=== PATIENT | male | born 1950 | race Caucasian/White ===

== ENCOUNTER 2024-03-04 21:56 | Inpatient (IN) | payer MEDICARE, SELFPAY ==
[2024-03-04 19:53] VITALS: BP 150/102
[2024-03-04 20:13] VITALS: BMI 28.4
--- NOTE | 2024-03-04 20:23 | ED.GENMED ---
History of Present Illness
General
Chief Complaint: Fever
Source: patient, records, spouse and family
Exam Limitations: none
Time Seen by Provider: 03/04/24 20:02
Nursing documentation reviewed up to this point in time: agreed with
History of Present Illness
History of Present Illness:
73-year-old male presents with fever malaise, had a Linq device replaced a week ago [facility] by Dr. Ennis has some drainage, placed on Bactrim a few days ago slept a few hours today which is not typical for him had fever 102, was
on a cruise a few months ago, some people are sick he had not been sick afterwards no, breathing feels okay has no nausea or vomiting no dysuria or frequency
Past History
Past History
ED Past Medical History: Arrthythmia, HTN and NIDDM
ED Past Surgical History: Cardiac
Social History
Tobacco: Non-smoker
Alcohol: Occasional
Drug: None
Personal:
Living: with family
Employment: Retired
Review of Systems
Review of Systems
Constitutional: Reports fever and fatigue
EENT: Reports no symptoms
Respiratory: Reports no symptoms
Cardiac: Reports no symptoms
ABD/GI: Reports no symptoms
Neurological: Reports weakness
Endocrine: Reports no symptoms
Hematologic/Lymphatic: Reports no symptoms
Psychiatric: Reports no symptoms
Phy Exam
Physical Exam
Physical Exam:
Physical Exam
General: 73 male warm to touch not hot
Neck: No jaundice
Heart: Tachycardic
Lungs: no acute respiratory distress. No wheeze
Abdomen: Nontender
Neuro: alert and oriented. no focal neurological deficits
Skin: Scar the left upper chest with redness some purulence
Psychiatric: well kept. interactive and cooperative
Extremities: no edema.
Course
Orders/Labs/Results
Orders:
Orders
03/04/24 20:18
COVID-19 Antigen Urgent
Source: Nasal Swab
Complete Blood Count/With Diff Urgent
Comprehensive Metabolic Panel Urgent
Blood Culture Urgent
RYAN Source: Blood/Venous
Specimen Description:
03/04/24 20:21
Electrocardiogram (*1) Urgent
Reason for Study: Abnormal EKG
EKG- Treatment ONCE
Blood Culture Urgent
RYAN Source: Blood/Venous
Specimen Description:
0.9% Sodium Chloride 1000 ml [Nss] 1,000 ml IV BOLUS
Acetaminophen [Tylenol] 650 mg PO NOW STA
03/04/24 20:41
Piperacillin/Tazo 3.375 Gram [Zosyn] 3.375 gram in 50 ml IV NOW
Vancomycin 1 Gram/200 ml [Vancocin] 1 gram in 200 ml IV NOW
Abnormal Lab Results
03/04/24
20:18
RBC 4.42 L 10^6/uL
(4.70-6.10)
MCH 32.1 H pg
(27.0-31.0)
Absolute Lymphs (auto) 0.5 L 10^3/uL
(1.2-3.4)
Absolute Monos (auto) 0.7 H 10^3/uL
(0.1-0.6)
Neutrophils % 75.7 H %
(42.2-75.2)
Lymphocytes % 9.7 L %
(20.5-51.1)
Monocytes % 12.0 H %
(1.7-9.3)
03/04/24 20:18
Vital Signs
Initial and Last Documented VS:
Initial Vital Signs
Temp Pulse Resp BP Pulse Ox
99.1 F 120 24 150/102 98
03/04/24 19:53 03/04/24 19:53 03/04/24 19:53 03/04/24 19:53 03/04/24 19:53
Last Documented Vital Signs
Temp Pulse Resp BP Pulse Ox
99.1 F 114 16 135/87 94
03/04/24 19:53 03/04/24 20:30 03/04/24 20:30 03/04/24 20:30 03/04/24 20:30
MDM/Problems Addressed
Differential Diagnosis Includes:
Cellulitis bacteremia viral syndrome complication linq
MDM/Problems Addressed:
Fever
Chronic conditions affecting care: DM and Arrhythmia
Acute Exacerbation and/or Progression of Chronic Illness: Arrhythmia
*Pulse Oximetry
Patient hypoxic: no
*Die Engraver Interpretation
Rate: normal
Interpretation: normal
Heart Rate: 78
Rhythm: sinus
*Critical Care Note
Total Time (30-74mins, 75-104mins- exclusive of procedures): Not Applicable
Update Note
Update Note:
Update patient with fever concern for bacteremia recent procedure patient refers to stay at [facility] which is not unreasonable reviewed briefly with cardiology and hospitalist patient's [id number] who is also hospitalist
ED Attending Note
-
Portions of this chart may have been created with voice recognition software.� Occasional wrong word or��sound alike� substitutions may have occurred due to the inherent limitations of voice recognition software.
Discharge Plan
Departure
Patient Disposition: Admit
Date of Disposition: 03/04/24
Time of Disposition: 20:43
Admit to: Med/Surg
Presentation/result/management discussed w/ accepting MD/DO: Hospitalist
Patient with high blood pressure during this ER visit?: No
Condition: Fair
Covid-19: Not Applicable
Discharge Problem:
Bacteremia
Interventions
Interventions:
*Risk Screen - Suicide Last Done: 03/04/24 19:53
*General Assessment Last Done: 03/04/24 19:53
*Neglect/Abuse Screening Last Done: 03/04/24 19:53
ED- Fall Risk Assessment Last Done: 03/04/24 19:53
*ED COVID-19 Vaccine History Last Done: 03/04/24 19:53
ED- Neurological Assessment Last Done: 03/04/24 20:14
ED-Skin Assessment Last Done: 03/04/24 20:17
Discharge Date and Time
Print Language: FRENCH
[2024-03-04 20:28] LABS: % Basophils 0.4 % (0-2); % Immature Granulocytes 0.2 % (0-0.5); % Lymphocytes 9.7 % (20.5-51.1); % Neutrophils 75.7 % (42.2-75.2); Absolute Eosinophils 0.1 10^3/uL (0-0.7); Absolute Lymphocytes 0.5 10^3/uL (1.2-3.4); Absolute Monocytes 0.7 10^3/uL (0.1-0.6); Absolute Neutrophils 4.2 10^3/uL (1.4-6.5); Hematocrit 39.4 % (39.0-52.0); Hemoglobin 14.2 g/dL (13.0-18.0); Mean Corpuscular Hgb 32.1 pg (27.0-31.0); Mean Corpuscular Volume 89.1 fL (80.0-94.0); Mean Platelet Volume 9.8 fL (7.4-10.4); Nucleated Red Blood Cells % 0 % (-); Platelet Count 166 10^3/uL (130-400); Red Blood Cell Count 4.42 10^6/uL (4.70-6.10); Red Cell Dist. Width 13.2 % (11.5-14.5); White Blood Cell Count 5.5 10^3/uL (4.8-10.8)
[2024-03-04] MEDS: TYLENOL 650 MG PO (20:29)
[2024-03-04 20:30] VITALS: BP 135/87
[2024-03-04] MEDS: NSS 1000 IV ×2 (20:31→23:43)
[2024-03-04 20:44] LABS: ALT (SGPT) 28 U/L (0-50); AST (SGOT) 27 U/L (17-59); Albumin 4.4 g/dl (3.5-5.0); Alkaline Phosphatase 80 U/L (38-126); Blood Urea Nitrogen 20 mg/dl (9-20); Calcium 9.2 mg/dl (8.4-10.2); Carbon Dioxide 28 mmol/L (22-30); Chloride 99 mmol/L (98-107); Estimated Creatinine Clearance 76 ml/min; Glucose 122 mg/dl (70-99); Potassium 3.6 mmol/L (3.5-5.1); Sodium 137 mmol/L (135-145); Total Bilirubin 1.9 mg/dl (0.2-1.3); Total Protein 6.8 g/dl (6.3-8.2); eGFR > 60.00
[2024-03-04 20:49] LABS: COVID-19 Antigen Negative (Negative)
[2024-03-04 21:00] VITALS: BP 139/85
[2024-03-04] MEDS: ZOSYN 50 IV (21:00)
--- NOTE | 2024-03-04 21:17 | HPS.HSE ---
Family Physician
-
Family Physician:
Chief Complaint
-
Fever and weakness
History of Present Illness
73-year-old man comes in with fever and malaise. He had a Linq device replaced a week ago at [facility] by Dr. Ennis. The past device's battery had run out. Since then, he has had some drainage, and was placed on Bactrim a few
days ago. Today he slept a few hours during the day, which is not typical for him, and had fever 102. Of note he was on a cruise a few months ago, and some people from the cruise are sick, but he had not been sick afterwards. He reports no
breathing difficulties, and that he feels okay, has no nausea or vomiting, no dysuria or frequency. At the time of my interview he stated he was comfortable and had no complaints. He has no prior admits to our hospital system.
Medical History
Past Medical History
Past Medical History: Reports Other
Additional Past Medical History:
Arrthythmia, paroxyxmal afib
Essential HTN
NIDDM
hypercholesterolemia
Knee arthritis
Orthopedic foot problem
Enlarged prostate
Past Surgical History: Reports Other
Additional Past Surgical History:
see above, placement of Linq device.
Social History
Tobacco: Non-smoker
Alcohol: Occasional
Drug: None
Personal:
Living: With Family
Family History
Family History: Not pertinent
Allergies / Home Medications
Allergies reflects when Allergies were last updated in [facility].
Home Medications with original date entered in [facility]
Allergy/Medication List:
Allergies
Allergy/AdvReac Type Severity Reaction Status Date / Time
No Known Allergies Allergy Unverified 03/04/24 20:00
Home Medications
amlodipine 10 mg tablet 10 mg PO DAILY 03/04/24
apixaban 5 mg tablet (Eliquis) 5 mg PO BID 03/04/24
ascorbic acid (vitamin C) 500 mg tablet (Vitamin C) 500 mg PO DAILY 03/04/24
atorvastatin 20 mg tablet 20 mg PO HS 03/04/24
calcium carbonate 500 mg PO DAILY 03/04/24
dapagliflozin propanediol 10 mg tablet (Farxiga) 10 mg PO DAILY 03/04/24
enalapril maleate 20 mg tablet 20 mg PO DAILY 03/04/24
flecainide 100 mg tablet 100 mg PO Q12H 03/04/24
glucosamine sulfate 500 mg tablet (Glucosamine) 500 mg PO DAILY 03/04/24
hydrochlorothiazide 25 mg tablet 25 mg PO DAILY 03/04/24
metoprolol succinate 100 mg tablet,extended release 24 hr 100 mg PO DAILY 03/04/24
omega 4-msk-sxt-fish oil 1,000 mg (120 mg-180 mg) capsule (Fish Oil) 1 cap PO DAILY 03/04/24
potassium chloride 20 mEq tablet,extended release(part/cryst) (Klor-Con M) 20 meq PO .3X WEEKLY 03/04/24
sulfamethoxazole 800 mg-trimethoprim 160 mg tablet (Bactrim DS) 1 tab PO BID 03/04/24
tamsulosin 0.4 mg capsule 0.4 mg PO HS 03/04/24
therapeutic multivitamin 1 tab PO DAILY 03/04/24
turmeric 400 mg capsule 400 mg PO DAILY 03/04/24
Review of Systems
-
History Source: Patient
A 12 point ROS was completed and negative except as noted: Yes
Physical Exam
Vital Signs
Vital Signs
Temp Pulse Resp BP Pulse Ox
99.1 F 111 23 139/85 93
03/04/24 19:53 03/04/24 21:00 03/04/24 21:00 03/04/24 21:00 03/04/24 21:00
Physical Exam
General: Well Developed, Well Nourished, No Apparent Distress, Comfortable and Conversant
HEENT: NormoCephalic, Anicteric, Moist mucous membranes, Atraumatic, Nose Appears Normal and Ears Appear Normal
Respiratory: Clear
Cardiac: S1/S2, Irregular Rhythm and Tachycardia (rate 100-105)
GI: Soft, Non Tender and Non Distended
Musculoskeletal: No Clubbing, No Cyanosis and No Edema
Skin: Warm and Dry; No Rash or Jaundice
Neuro: Awake, Alert, Oriented and AO x 3
Psych: Calm
Laboratory Results
-
03/04/24 20:18
03/04/24 20:18
Laboratory Results
Total Bilirubin 1.9 mg/dl (0.2-1.3) H 03/04/24 20:18
AST 27 U/L (17-59) 03/04/24 20:18
ALT 28 U/L (0-50) 03/04/24 20:18
Alkaline Phosphatase 80 U/L (38-126) 03/04/24 20:18
Data Reviewed
-
Lab Data: Labs Reviewed by me
Impression/Plan
-
IMPRESSION:
73 man with probable infected linq device implantation site.
temp 99.1
SBP 150-120
Pulse 100-110
WBC 5.5
glucose 122
PLAN:
1. Probable infected linq device site, no signs of sepsis, BP stable.
ER started abx: zosyn and vanc - continue
Iv fluids given - continue (no h/o CHF)
Cardiology consulted by ED
Removal of device in am
NPO after midnight, but may have meds
2. NIDDM - glucose in good range
Supplemental insulin not needed at this time
3. Essential HTN - continue home meds
4. Eliquis for afib - Will discuss with cardiology to see if it should be held.
Code: Full
VCD for DVTp
--- NOTE | 2024-03-04 21:34 | HPS.HSE ---
Family Physician
-
Family Physician: NOT KNOW UNKNOWN - PT DOES
Chief Complaint
-
Fever and lethargy
Medical History
Allergies / Home Medications
Allergies reflects when Allergies were last updated in [facility].
Home Medications with original date entered in [facility]
Physical Exam
Vital Signs
Vital Signs
Temp Pulse Resp BP Pulse Ox
99.1 F 111 23 139/85 93
03/04/24 19:53 03/04/24 21:00 03/04/24 21:00 03/04/24 21:00 03/04/24 21:00
Laboratory Results
-
03/04/24 20:18
03/04/24 20:18
Laboratory Results
Total Bilirubin 1.9 mg/dl (0.2-1.3) H 03/04/24 20:18
AST 27 U/L (17-59) 03/04/24 20:18
ALT 28 U/L (0-50) 03/04/24 20:18
Alkaline Phosphatase 80 U/L (38-126) 03/04/24 20:18
Impression/Plan
-
IMPRESSION:
PLAN:
[2024-03-04] MEDS: VANCOCIN 200 IV (21:53)
[2024-03-04 22:00] VITALS: BP 119/78
[2024-03-04] MEDS: FLOMAX 0.4 MG PO (22:39)
[2024-03-04] MEDS: LIPITOR 20 MG PO (22:40)
[2024-03-04] MEDS: TAMBOCOR 100 MG PO (22:40)
[2024-03-04 23:00] VITALS: BP 124/75
[2024-03-04 23:21] VITALS: BP 128/83
[2024-03-04 23:23] VITALS: BMI 28.6
[2024-03-04 23:40] VITALS: BMI 28.6
[2024-03-04 23:58] LABS: Lactic Acid 0.8 mmol/L (0.7-2.0)
[2024-03-05] VITALS (11 sets, daily range): BP systolic 114–153; BP diastolic 63–74
--- NOTE | 2024-03-05 | PTCARENOTE ---
Received pt from ED into room 0. Pt able to ambulate to bed with stand by assistance. Able to answer all admission questions. AAOx3. VSS. See assessment. NSS @ 75ml/hr initiated into R AC. NPO at midnight for procedure tomorrow. Pt states he uses
CPAP at home, offered to use one of our machines/reach out to respiratory, pt refused. Medial chest dressing changed and assessed, see proper documentation. Pt oriented to room. Pt has no complaints at this time, resting comfortably in bed.
[2024-03-05] MEDS: ZOSYN 50 IV ×4 (03:56→22:50)
[2024-03-05] MEDS: VANCOCIN 200 IV ×2 (05:53→18:09)
--- NOTE | 2024-03-05 08:36 | W.PN.HOSP.TC ---
Today's Communication/Plan
-
see bold
Assessment / Plan
Assessment / Plan
Gen: NAD, AAOx3.
Eyes: EOMI, PERRLA, no scleral icterus.
Neck: supple.
CV: irreg/irreg, +S1/S2, no m/r/g.
Resp: CTAB, no rales, wheezes, or rhonchi.
Abd: +BS, soft, NT, ND
Skin: Left chest with skin breakdown and mild cellulitis. No fluctuance. Scant purulent discharge on gauze bandage.
Neuro: CN 2-12 intact, non-focal.
Psych: Normal mood and affect.
Infected Linq site:
-Case discussed with cardiology. For device removal today.
-Continue vancomycin/Zosyn, consult infectious disease
DM2:
-SSI/accuchecks
-check a1c
-cont Farxiga
Essential hypertension:
-Continue Norvasc/enalapril/hydrochlorothiazide/Toprol-XL
Atrial fibrillation:
-Presumed permanent
-Continue flecainide/Toprol-XL
-Eliquis on hold for today's procedure
FULL/SCDs
Anticipated Discharge: Within 24 hours
Subjective/Interval History
-
Date of Service: March 05, 2024
Objective Data
-
Labs:
Laboratory Results
03/04/24 03/05/24
20:18 08:29
WBC Pending
Hgb Pending
Hct Pending
Plt Count Pending
Sodium 137 Pending
Potassium 3.6 Pending
Chloride 99 Pending
Carbon Dioxide 28 Pending
BUN 20 Pending
Creatinine 0.8 Pending
Glucose 122 H Pending
Calcium 9.2 Pending
Total Bilirubin 1.9 H Pending
AST 27 Pending
ALT 28 Pending
Alkaline Phosphatase 80 Pending
Vital Signs:
Vital Signs
Temp Pulse Resp BP Pulse Ox
98.2 F 72 16 121/69 94
03/05/24 07:45 03/05/24 07:45 03/05/24 07:45 03/05/24 07:45 03/05/24 07:45
[2024-03-05 08:56] LABS: Hematocrit 36.3 % (39.0-52.0); Hemoglobin 12.8 g/dL (13.0-18.0); Mean Corp Hgb Conc. 35.3 g/dL (33.0-37.0); Mean Corpuscular Hgb 32.7 pg (27.0-31.0); Mean Corpuscular Volume 92.6 fL (80.0-94.0); Mean Platelet Volume 10.3 fL (7.4-10.4); Platelet Count 140 10^3/uL (130-400); Red Blood Cell Count 3.92 10^6/uL (4.70-6.10); Red Cell Dist. Width 13.5 % (11.5-14.5); White Blood Cell Count 3.8 10^3/uL (4.8-10.8)
[2024-03-05] MEDS: OSCAL CAL 500 500 MG PO (09:30)
[2024-03-05] MEDS: NORVASC 10 MG PO (09:30)
[2024-03-05] MEDS: VITAMIN C 500 MG PO (09:30)
[2024-03-05] MEDS: THERAGRAN 1 TABLET PO (09:30)
[2024-03-05] MEDS: TOPROL XL 100 MG PO (09:31)
[2024-03-05] MEDS: ORETIC 25 MG PO (09:31)
[2024-03-05] MEDS: VASOTEC 20 MG PO (09:31)
[2024-03-05] MEDS: FARXIGA 10 MG PO (09:32)
[2024-03-05 09:42] LABS: ALT (SGPT) 23 U/L (0-50); AST (SGOT) 24 U/L (17-59); Albumin 3.4 g/dl (3.5-5.0); Alkaline Phosphatase 62 U/L (38-126); Blood Urea Nitrogen 17 mg/dl (9-20); Calcium 8.3 mg/dl (8.4-10.2); Carbon Dioxide 27 mmol/L (22-30); Chloride 103 mmol/L (98-107); Estimated Creatinine Clearance 76 ml/min; Glucose 113 mg/dl (70-99); Potassium 3.4 mmol/L (3.5-5.1); Sodium 139 mmol/L (135-145); Total Bilirubin 1.4 mg/dl (0.2-1.3); Total Protein 5.7 g/dl (6.3-8.2); eGFR > 60.00
--- NOTE | 2024-03-05 10:17 | CON.CAR ---
Consultation
Consultation Request
Date/Time Consultation Requested: 03/05/2024
Reason for Consultation: infected ILR pocket
Medical History
-
Chief Complaint: Fever
History of Present Illness:
73-year-old gentleman, with history of atrial fibrillation status post A-fib ablation at [facility] in 2021, with recurrence and DC cardioversion along with flecainide/Eliquis who has been having paroxysmal atrial fibrillation.
Patient had implantable loop recorder implanted in 2021 that lasted for 2 years. In February 2024, a week ago patient had whole lobe explanted and brand-new loop was implanted by Dr. Ennis at [facility].
Since then, patient has started swelling in the area of the loop associated with erythema. Patient was started on Bactrim. However he now presented with fever of 102 �F with malaise and weakness. The really has not been any other source of
infection. The implantable loop recorder pocket is inflamed and is now producing pus with dehiscence of the wound.
Patient did have a cruise a few months ago. He is also from [place] where he travels.
Past Medical History
Past Medical History: Arrhythmias (Paroxysmal atrial fibrillation status post A-fib ablation 2021 at [facility]), HTN, Hypercholesterolemia, NIDDM and Other (BPH, osteoarthritis,)
Past Surgical History: Cardiac (Status post A-fib ablation, status post ILR)
Social History
Tobacco: Non-Smoker
Alcohol: Occasional
Drug: None
Personal:
Living: With Family
Family History
Family History: Reviewed & Not Pertinent
Allergies / Home Medications
Allergy/AdvReac Type Severity Reaction Status Date / Time
No Known Allergies Allergy Unverified 03/04/24 20:00
�Medication �Instructions �Recorded �Confirmed �Type
amlodipine 10 mg tablet 10 mg PO DAILY Blood Pressure 03/04/24 03/04/24 History
apixaban 5 mg tablet (Eliquis) 5 mg PO BID Blood Clot 03/04/24 03/04/24 History
Prevention/Tx
ascorbic acid (vitamin C) 500 mg 500 mg PO DAILY Supplement 03/04/24 03/04/24 History
tablet (Vitamin C)
atorvastatin 20 mg tablet 20 mg PO HS High Cholesterol 03/04/24 03/04/24 History
calcium carbonate 500 mg PO DAILY Supplement 03/04/24 03/04/24 History
dapagliflozin propanediol 10 mg 10 mg PO DAILY Diabetes 03/04/24 03/04/24 History
tablet (Farxiga)
enalapril maleate 20 mg tablet 20 mg PO DAILY Blood Pressure 03/04/24 03/04/24 History
flecainide 100 mg tablet 100 mg PO Q12H Arrhythmia 03/04/24 03/04/24 History
glucosamine sulfate 500 mg tablet 500 mg PO DAILY Supplement 03/04/24 03/04/24 History
(Glucosamine)
hydrochlorothiazide 25 mg tablet 25 mg PO DAILY Blood Pressure 03/04/24 03/04/24 History
metoprolol succinate 100 mg 100 mg PO DAILY Heart Failure 03/04/24 03/04/24 History
tablet,extended release 24 hr
omega 6-frc-sne-fish oil 1,000 mg 1 cap PO DAILY High Cholesterol 03/04/24 03/04/24 History
(120 mg-180 mg) capsule (Fish Oil)
potassium chloride 20 mEq 20 meq PO Q48H Electrolyte 03/04/24 03/04/24 History
tablet,extended Repletion
release(part/cryst) (Klor-Con M)
sulfamethoxazole 800 1 tab PO BID Infection 03/04/24 03/04/24 History
mg-trimethoprim 160 mg tablet
(Bactrim DS)
tamsulosin 0.4 mg capsule 0.4 mg PO HS Urinary Issue 03/04/24 03/04/24 History
therapeutic multivitamin 1 tab PO DAILY Supplement 03/04/24 03/04/24 History
turmeric 400 mg capsule 400 mg PO DAILY Supplement 03/04/24 03/04/24 History
vitamins A,C,M-omzx-apdoqs 4,296 1 cap PO BID Supplement 03/04/24 03/04/24 History
mcg-226 mg-90 mg capsule
(PreserVision AREDS)
Review of Systems
-
History Source: Patient and Family
All other systems: Negative unless noted
Physical Exam
Vital Signs
Temp Pulse Resp BP Pulse Ox
98.2 F 72 16 121/69 94
03/05/24 07:45 03/05/24 09:31 03/05/24 07:45 03/05/24 09:31 03/05/24 07:45
Lab Results
03/05/24 08:29
03/05/24 08:29
Physical Exam
General: Well Developed, Well Nourished, No Apparent Distress, Comfortable and Respiratory Distress
HEENT: Normocephalic, Anicteric and Moist Mucous Membranes
Respiratory: Clear and Non Labored Respirations
Cardiac: S1/S2 and Regular Rhythm
GI: Soft, Non Tender, Non Distended and Normal Bowel Sounds
Musculoskeletal: No Clubbing, No Cyanosis and No Edema
Neuro: Awake, Alert, AO x 3 and No Motor Deficits
Impression / Plan
-
73-year-old gentleman with history of paroxysmal atrial fibrillation, status post A-fib ablation 2021 with subsequent implantable loop recorder status post loop reimplant in February 2024 presented with fevers rigors and chills along with infected
pocket.
Implantable loop recorder pocket infection
-Drainage from the pocket of implantable loop recorder
-Wound dehiscence
-With A-fib already noted and failure of flecainide/ablation, patient needs to be anticoagulated with Eliquis.
-With a source of infection, we will remove implantable loop recorder and washout the pocket.
-No other source of infection noted at this time.
Paroxysmal atrial fibrillation
-Status post A-fib ablation
-Currently on flecainide/metoprolol
-With recurrence of atrial fibrillation, we will consider this flecainide failure.
-With his age, hypertension, diabetes, patient is at high risk for coronary disease as well. He may not be a good candidate for flecainide.
-We discussed discontinuing flecainide and switching to another antiarrhythmic drugs like sotalol or dofetilide.
-Resume Eliquis. With disruption and anticoagulation, we will not recommend cardioversion at this time.
-Patient is paroxysmal and likely come out to sinus rhythm within a day or so once infection is well-controlled.
Obstructive sleep apnea
-On CPAP for the past 2 months now.
Data Reviewed
-
EKG: Tracing Personally Visualized and interpreted
Radiology: Report Reviewed by me
Medical Tests (Nuc Med, Echo etc): Image Personally Visualized and interpreted
Labs: Labs Reviewed by me
Old Records: Reviewed
--- NOTE | 2024-03-05 10:39 | PHA.VAN.IN ---
Addendum entered and electronically signed by Reanna Sarkar RPH 03/05/24 11:09:
Agree with resident's assessment and plan below.
Original Note:
Assessment
- Assessment
Renal Function: Appears similar to baseline
Concomitant Antimicrobials: Piperacillin/Tazobactam
AUC Dosing Plan
- Dosing Variables
Dosing Weight (kg): 82.69
Dosing CrCl (ml/min): 76
Vd coefficient (L/kg): 0.7
- Empiric Dosing
Initial / Loading Dose: Vanco 1000mg
Maintenance Regimen: Vanco 1000mg Q12H Started 03/05 06
Estimated AUC (mcg*h/mL): 529
Estimated Peak (mcg*h/mL): 31.1
Estimated Trough (mcg/ml): 14.8
Estimated Half Life (H): 10.27
- Monitoring
No levels ordered at this time: Consider in the next few days
Pharmacokinetics Vancomycin I
- -
Patient Age: 73
Patient Sex: Male
Vancomycin Day #: 1
Indication: Bacteremia
Requesting Provider: Ting
Pertinent Antimicrobial Allergies:
NKDA
Height / Weight:
Height 5 ft 7 in
Actual Weight 82.69 kg
Pertinent Past Medical History: placement of Linq device w/ drainage
- Vital Signs / Lab Results
Temp Pulse Resp BP Pulse Ox
98.2 F 72 16 121/69 94
03/05/24 07:45 03/05/24 09:31 03/05/24 07:45 03/05/24 09:31 03/05/24 07:45
Lab Results - Hematology
03/04/24 03/05/24
20:18 08:29
WBC 5.5 3.8 L
Lab Results - Chemistry
03/04/24 03/05/24
20:18 08:29
BUN 20 17
Creatinine 0.8 0.8
Estimated Creat Clear 76 76
Albumin 4.4 3.4 L
03/04/24 03/05/24 03/05/24
23:22 03:14 07:14
Lactic Acid 0.8 Cancelled Cancelled
[2024-03-05] MEDS: NOVOLOG FLEXPEN-LOW RESISTANCE SC ×2 (11:16→17:27)
[2024-03-05 11:17] LABS: Glucose - Point of Care 109 mg/dl (70-99)
[2024-03-05 11:29] LABS: Lactic Acid 1.1 mmol/L (0.7-2.0)
[2024-03-05] MEDS: TAMBOCOR 100 MG PO ×2 (11:44→22:50)
--- NOTE | 2024-03-05 13:19 | ITS.CL.IMPLP ---
[facility] - Implant Loop
Implant Loop
Procedure Report:
Procedure: Extraction of Loop Recorder.
Date of the procedure: 03/05/24
Procedure Physician: Magaly Cassidy MD [facility]
Indication: Infected pocket
Description of the procedure:
Patient was brought to the holding area after informed consent was obtained. The time out was performed immediately before the procedure.
The left parasternal chest area was prepped and draped in sterile fashion with chlorahexidine prep x 3 times. Lidocaine 1% was injected subcutaneously for local anesthesia. The loop recorder was palpated and the location was identified. There was
expressed pus from the pocket. An incision was made at the previous insertion location. The blunt dissection was done to identify the location of the ILR. The ILR was pulled out of the capsule.
A set of cultures was obtained.
The pocket was flushed with antibiotics soaked saline and the wound was washed thoroughly. With infection, decision was made to leave the wound open with secondary intention healing.
A loose dressing applied with gauzes and paper tape to allow for the drainage of infected material.
Explanted device:
[employer] Reveal Linq; Model# [id number];
Conclusion:
Successful removal of the loop recorder, pocket washout. �
--- NOTE | 2024-03-05 13:54 | CON.ID ---
Consultation
-
Date/Time Consultation Requested: 03/05/2024 08:18
Date/Time Consultation Performed: 03/05/2024 12:40
Requesting Provider: Dr. Snyder
Performing Provider: Dr. Temple
Reason for Consultation: Loop recorder pocket infection
Chief Complaint / Past History
History of Present Illness
David Mata is a 73-year-old man with a significant past medical history of paroxysmal atrial fibrillation being evaluated at the request of Dr. Snyder regarding loop recorder pocket infection. History is obtained from chart review, along with
patient interview and history obtained from the patient's who was present at the bedside.
The patient has a longstanding history of atrial fibrillation and has previously undergone cardiac ablation, but without success. He had a loop recorder implanted in 2021, but the battery reached end-of-life status and the loop recorder was
replaced last week at [facility]. According to the , approximately 5 days ago the site appeared 'wet'. The next day they noted small amount of yellowish drainage, but this was under the gauze that was over top the incisional area. Over the next
several days he noted some purulence from the area and 2 days ago the patient developed some fever which continued on to yesterday. Because of symptomatology, he came to the emergency room for further evaluation. Here, cultures were obtained
(currently pending), and the patient has been evaluated by cardiology. The patient is currently status post explantation of the Linq device.
At present, he denies significant discomfort or pain. He denies any current fevers or chills. He has been afebrile since admission.
Past History
Additional Past Medical History:
Paroxysmal A-fib
HTN
DM
Dyslipidemia
Additional Past Surgical History:
Cardiac ablation (2021)
Loop recorder implantation
Cholecystectomy
Allergy History:
No Known Allergies Allergy (Unverified 03/04/24 20:00)
Medications Reviewed: Yes
Current Antibiotics:
Vancomycin
Zosyn
Social History
Tobacco: Non-Smoker
Alcohol: Occasional
Drug: None
Personal:
Living: With Family
Employment: Retired
Family History
Family History: Not Pertinent
Review of Systems
Vital Signs
Temp Pulse Resp BP Pulse Ox
98.3 F 76 16 153/74 94
03/05/24 11:49 03/05/24 11:49 03/05/24 11:49 03/05/24 11:49 03/05/24 11:49
Physical Exam
Physical Exam
Constitutional: No Acute Distress, Comfortable and Non-toxic
Head: Normocephalic
Eyes: No Conjunctival Hemorrhage and Sclera Anicteric
Oral: No Thrush and No Ulcers
Cardiovascular: Irregular Rate and S1/S2; Negative S3/S4 or Murmur
Pulmonary: Clear and Non Labored
Gastrointestinal: Soft, Non Tender, Non Distended and Normal Bowel Sounds
Extremities: Negative Edema, Cyanosis or Erythema
Neurological: Awake, Alert and Oriented
Psychological: Calm
.
Lab / Diagnostic Study Results
03/05/24 08:29
03/05/24 08:29
Abs Immat Gran (auto) 0.0 10^3/uL (0-0.05) 03/04/24 20:18
Absolute Neuts (auto) 4.2 10^3/uL (1.4-6.5) 03/04/24 20:18
Absolute Lymphs (auto) 0.5 10^3/uL (1.2-3.4) L 03/04/24 20:18
Absolute Monos (auto) 0.7 10^3/uL (0.1-0.6) H 03/04/24 20:18
Absolute Basos (auto) 0.0 10^3/uL (0-0.2) 03/04/24 20:18
Immature Gran % 0.2 % (0-0.5) 03/04/24 20:18
Neutrophils % 75.7 % (42.2-75.2) H 03/04/24 20:18
Lymphocytes % 9.7 % (20.5-51.1) L 03/04/24 20:18
Monocytes % 12.0 % (1.7-9.3) H 03/04/24 20:18
Eosinophils % 2.0 % (0-6) 03/04/24 20:18
Basophils % 0.4 % (0-2) 03/04/24 20:18
Lactic Acid 1.1 mmol/L (0.7-2.0) 03/05/24 11:07
Microbiology Results
Micro:
03/04/24 20:59 Wound Culture - Pending
Surgical Wound Gram Stain - Preliminary
03/04/24 20:18 Blood Culture - Pending
Blood/Venous
Assessment / Plan
Cardiac device pocket infection
- s/p explantation; cultures pending
Hx fever; none since admission
Paroxysmal A-fib
HTN
DM
Dyslipidemia
Recommendations:
Continue empiric vancomycin and Zosyn for the present.
Await further culture data to guide antimicrobial selection and potential de-escalation.
Monitor white count and temperature curve.
Local care to the surgical wound.
Further recommendations as additional data is returned.
--- NOTE | 2024-03-05 17:00 | CM ---
Alert awake oriented patient who lives with his Tashia who lives in a 2 story home with 4 step to enter and 14 steps to bed and bathroom. He is independent in driving and in all activities of daily living.He was offered VN he declined need.He
uses CPAP and cane .
No VN hx / No SNF history
Pharmacy [facility]
PCP DR Corky Bose
PLAN Home Declined VN
[2024-03-05 17:26] LABS: Glucose - Point of Care 129 mg/dl (70-99)
[2024-03-05 21:20] LABS: Glucose - Point of Care 196 mg/dl (70-99)
[2024-03-05] MEDS: LIPITOR 20 MG PO (22:50)
[2024-03-05] MEDS: FLOMAX 0.4 MG PO (22:50)
[2024-03-06 03:18] VITALS: BP 137/73
[2024-03-06] MEDS: ZOSYN 50 IV ×2 (04:00→09:24)
[2024-03-06] MEDS: VANCOCIN 200 IV (06:00)
[2024-03-06 07:35] LABS: Glucose - Point of Care 137 mg/dl (70-99)
--- NOTE | 2024-03-06 07:40 | W.PN.HOSP.TC ---
Addendum entered and electronically signed by Ortega Snyder MD 03/06/24 15:27:
Pt's son updated. Medically cleared for d/c. Wound care to see pt prior to discharge.
Total time spent on d/c = 36 min. This included today's physical exam, progress note, review of laboratory and diagnostic data, preparation of discharge documents and prescriptions, and discussions about the pt's hospital course and discharge plan
with the patient and other senior medical writer involved in the patient's care.
Original Note:
Today's Communication/Plan
-
see bold
Assessment / Plan
Assessment / Plan
Gen: NAD, AAOx3.
Eyes: EOMI, PERRLA, no scleral icterus.
Neck: supple.
CV: RRR, +S1/S2, no m/r/g.
Resp: very faint rales R base
Abd: +BS, soft, NT, ND
Skin: L chest with C/D/I bandage
Neuro: CN 2-12 intact, non-focal.
Psych: Normal mood and affect.
03/04/24 20:18 Blood/Venous Blood Culture - Preliminary
No Growth in 24 hours- Final report to follow
03/04/24 20:59 Surgical Wound Gram Stain - Preliminary
Echo: Limited by bandages. Normal BiV sz/fxn without RWMA, EF 50-55%.
Sepsis, POA, due to infected Linq site:
-s/p explantation 03/05/24
-cultures without growth to date
-was Vanco/Zosyn, now de-escalated to Ancef as per ID
Paroxysmal atrial fibrillation:
-h/o ablation in 2021
-Continue Toprol-XL
-currently on flecainide which is being stopped. Cardiology considering changing to an alternative antiarrhythmic such as sotalol or Tikosyn.
-restart Eliquis
Chronic HFpEF:
-since we are stopping HCTZ will give 1 dose IV Lasix
-cont BB
-as per cardiology, plan to start aldactone in the near future
Hypokalemia:
-K 3.4 yesterday, 3.6 today
-40meq KCl considering pt is receiving a dose of IV Lasix
DM2:
-SSI/accuchecks
-check a1c
-cont Farxiga
Essential hypertension:
-Continue Norvasc/enalapril/Toprol-XL
-stop HCTZ
Case discussed over the phone with pt's primary cardiology, Dr. Garcia, earlier today.
Pt's updated at bedside.
FULL/Eliquis
Anticipated Discharge: Within 24 hours
Subjective/Interval History
-
Date of Service: March 06, 2024
Denies shortness of breath. No new complaints.
Objective Data
-
Labs:
Laboratory Results
03/06/24
06:51
Sodium Pending
Potassium Pending
Chloride Pending
Carbon Dioxide Pending
BUN Pending
Creatinine Pending
Glucose Pending
Calcium Pending
Vital Signs:
Vital Signs
Temp Pulse Resp BP Pulse Ox
97.5 F 59 16 137/73 95
03/06/24 03:18 03/06/24 03:18 03/06/24 03:18 03/06/24 03:18 03/06/24 03:18
I&O
03/05/24 03/06/24 03/07/24
06:59 06:59 06:59
Intake Total 1140 / 1140
Balance 1140 / 1140
[2024-03-06] MEDS: NOVOLOG FLEXPEN-LOW RESISTANCE SC (07:41)
--- NOTE | 2024-03-06 07:51 | W.PN.CD ---
Today's Communication / Plan
-
- Stop HCTZ / Flecainide
- Lasix 20 mg IV x1
- Kcl 40 mg PO x1
- Consider switching Metoporlol to Sotalol.
Impression / Plan
-
73-year-old gentleman with history of paroxysmal atrial fibrillation, status post A-fib ablation 2021 with subsequent implantable loop recorder status post loop reimplant in February 2024 presented with fevers rigors and chills along with infected
pocket.
Implantable loop recorder pocket infection
-Drainage from the pocket of implantable loop recorder
-Wound dehiscence with pus
-s/p removal of implantable loop recorder and washout the pocket.
-No other source of infection noted at this time.
- No significant discharge from the wound - healing well. No pain.
Paroxysmal atrial fibrillation
-Status post A-fib ablation
-Currently on flecainide/metoprolol
-With recurrence of atrial fibrillation, we will consider this flecainide failure.
-With his age, hypertension, diabetes, patient is at high risk for coronary disease as well. He may not be a good candidate for flecainide.
-We discussed discontinuing flecainide and switching to another antiarrhythmic drugs like sotalol or dofetilide.
-Resumed Eliquis. back in sinus rhythm.
-QTc is 390s
-Discussed option of starting Sotalol. Will stop HCTZ and Flecainide.
-Can switch Metoprolol to Sotalol 80 mg BID. Patient will discuss with his family. He has to stay for 5 doses loading in the hospital.
CHF
-HFpEF
-ECHO 03/05/24 - Normal biventricular size and systolic function without regional wall motion abnormality. Left ventricular ejection fraction is 50-55%
-On Oxygen - still requiring 2L
-Will give 20mg IV lasix. Ashlyn now that we are stopping HCTZ
-Has hypokalemia. Replace today. 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
Obstructive sleep apnea
-On CPAP for the past 2 months now.
Physical Exam
Vital Signs/Labs
Vital Signs
Temp Pulse Resp BP Pulse Ox
97.5 F 59 16 137/73 95
03/06/24 03:18 03/06/24 03:18 03/06/24 03:18 03/06/24 03:18 03/06/24 03:18
03/05/24 03/06/24 03/07/24
06:59 06:59 06:59
Actual Weight 82.69 kg
03/05/24 08:29
Physical Exam
Constitutional: No acute distress and Comfortable
EENT: Anicteric and Moist mucous membranes
Cardiovascular: Rhythm & rate is regular, Pedal edema is absent, JVD pressure is normal and Systolic murmur absent
Respiratory: Respiratory effort normal, Lungs clear to auscul., Wheeze Absent and Crackles Absent
GI: Soft, Distention absent, Non tender and Normal bowel sounds
Neuro/Psych: Alert, Oriented and AO x 3
Data Reviewed
-
Date of Service: March 06, 2024
Medical Decision Making: Reviewed Test Results, Test Interpretation and Review of Case with other Provider
EKG: Tracing Personally Visualized and interpreted
Echo: Report Reviewed by me
Labs: Labs Reviewed by me
Old Records: Reviewed
[2024-03-06 08:00] VITALS: BP 122/62
[2024-03-06 08:19] LABS: Blood Urea Nitrogen 19 mg/dl (9-20); Calcium 8.6 mg/dl (8.4-10.2); Carbon Dioxide 26 mmol/L (22-30); Chloride 99 mmol/L (98-107); Estimated Creatinine Clearance 87 ml/min; Glucose 148 mg/dl (70-99); Potassium 3.6 mmol/L (3.5-5.1); Sodium 137 mmol/L (135-145); eGFR > 60.00
[2024-03-06] MEDS: KCL 40 MEQ PO (09:22)
[2024-03-06] MEDS: OSCAL CAL 500 500 MG PO (09:22)
[2024-03-06] MEDS: ELIQUIS 5 MG PO (09:22)
[2024-03-06] MEDS: KCL 20 MEQ PO (09:22)
[2024-03-06] MEDS: VITAMIN C 500 MG PO (09:24)
[2024-03-06] MEDS: VASOTEC 20 MG PO (09:24)
[2024-03-06] MEDS: FARXIGA 10 MG PO (09:25)
[2024-03-06] MEDS: TOPROL XL 100 MG PO (09:25)
[2024-03-06] MEDS: NORVASC 10 MG PO (09:25)
[2024-03-06] MEDS: THERAGRAN 1 TABLET PO (09:27)
[2024-03-06] MEDS: LASIX 20 MG IV (09:30)
--- NOTE | 2024-03-06 09:42 | PN.CDI ---
CDI
- -
CDI:
Physician Documentation Request
Admit Date: 03/04/24 21:56
Dear Doctor Claudio,
Patient admitted for Linq infection.
03/05 Hospitalist PN: 'Infected Linq site: -Case discussed with cardiology. For device removal today. -Continue vancomycin/Zosyn, consult infectious disease'
Selected Entries
03/04/24
19:53 03/04/24
20:30 03/04/24
21:00
Pulse 120 114 111
03/04/24
19:53 03/04/24
21:00 03/04/24
22:00
Resp Rate 24 23 25
Please clarify which of the following most accurately describes the status of the patient's infection:
Sepsis, POA
- Systemic manifestations of infection, with 2 or more SIRS criteria which include:
- Fever >100.4 degrees F or hypothermia < 96.8 degrees F
- Leukocytosis - WBC > 12,000 or leukopenia - WBC < 4,000 or > 10% bands
- Tachycardia > 90 beats per minute
- Tachypnea - RR > 20 breaths per minute or PaCO2 , 32mmHg
Source: Merck Manual 2013
Localized Infection Only, Without Systemic Illness
Other
Use of terms such as suspected, likely, concern for, or probable (associated with a specific diagnosis that is being evaluated, monitored, or treated as if it exists) are acceptable and can be coded in the inpatient setting, when documented at the
time of discharge.
Thank you,
Marly Allen RN, BSN
CDI Specialist
Available via [facility] text
Please use your independent medical judgment in providing your response.
[2024-03-06] MEDS: ORETIC PO (09:53)
[2024-03-06 12:15] LABS: Glycohemoglobin (HgbA1c) 6.3 % (4.0-5.6)
--- NOTE | 2024-03-06 12:17 | W.PN.ID1 ---
Date of Service
Date of Service: March 06, 2024
Today's Communication
Continue antibiotics.
Assessment / Plan
Cardiac device pocket infection
- s/p explantation; cultures pending
Hx fever; none since admission
Paroxysmal A-fib
HTN
DM
Dyslipidemia
Recommendations:
Cultures unrevealing thus far. No MRSA recovered, though.
Consolidate antibiotics to cefazolin 2 g IV every 8 hours.
Await further culture data to guide antimicrobial selection and further de-escalation.
Monitor white count and temperature curve.
Local care to the surgical wound.
����������������������������������������������������������
Chief Complaint
-: Fever and Other (Linq recorder pocket infection)
Subjective / Review of Systems
Review of Systems: No Fever and No Chills
Vital Signs / Physical Exam
Vital Signs
Vital Signs
Temp Pulse Resp BP Pulse Ox
97.2 F 66 18 122/62 96
03/06/24 08:00 03/06/24 09:30 03/06/24 08:00 03/06/24 09:30 03/06/24 08:00
Physical Exam
Constitutional: No Acute Distress, Comfortable and Non-toxic
Eyes: Sclera Anicteric
Cardiovascular: S1/S2; Negative S3/S4
Pulmonary: Non Labored
Gastrointestinal: Soft and Non Tender
Wound: Other (Chest wound area dressed. No strikethrough.)
Neurological: Awake, Alert and Oriented
Objective Data
Lab Data
Lab Results
03/05/24 08:29
03/06/24 06:51
Estimated Creat Clear 87 ml/min 03/06/24 06:51
Lactic Acid 1.1 mmol/L (0.7-2.0) 03/05/24 11:07
Total Bilirubin 1.4 mg/dl (0.2-1.3) H 03/05/24 08:29
AST 24 U/L (17-59) 03/05/24 08:29
ALT 23 U/L (0-50) 03/05/24 08:29
Alkaline Phosphatase 62 U/L (38-126) 03/05/24 08:29
Most recent labs reviewed.
Micro Results:
03/04/24 20:18 Blood Culture - Preliminary
Blood/Venous No Growth in 24 hours- Final report to follow
03/04/24 20:59 Wound Culture - Pending
Surgical Wound Gram Stain - No WBC; No organisms
[2024-03-06 12:34] LABS: Glucose - Point of Care 167 mg/dl (70-99)
[2024-03-06] MEDS: ANCEF 10 IV (13:00)
[2024-03-06] MEDS: NOVOLOG FLEXPEN-LOW RESISTANCE 1 UNITS SC (13:25)
--- NOTE | 2024-03-06 14:17 | CM ---
Reviewed the chart notes and spoke with the patient, spouse and son at the bedside. The patient anticipates being discharged to home with no additional needs being identified at this time. Patient declined offer of VN. CM continues to be
available to patient/family and is monitoring medical plan for needs at discharge.
Plan: Discharge to home when medically stable. Family will provide transportation.
[2024-03-06 16:00] VITALS: BP 132/66
--- NOTE | 2024-03-07 13:20 | W.DCSUMMARY ---
Discharge Summary
Discharge Data
Date of Admission: 03/04/24
Date of Discharge: 03/06/24
-
Pending Results: Yes
Additional Pending Results:
Final BCx
Hospital Course
Primary diagnoses:
Sepsis due to infected Linq site s/p explantation 03/05/24
Secondary diagnoses:
Paroxysmal atrial fibrillation
Chronic heart failure with preserved ejection fraction
Hypokalemia
Essential pretension
Type 2 diabetes mellitus
Consultants:
Infectious disease
Cardiology
Imaging:
Echo: Limited by bandages. Normal BiV sz/fxn without RWMA, EF 50-55%.
73 year old male who presented with chief complaints of fever and weakness as outlined in H&P done on admission. Hospital course by problem was:
Sepsis, POA, due to infected Linq site: Patient was placed on vancomycin and Zosyn. He underwent Linq explantation on 03/05/24 and tolerated the procedure well. Time of discharge the patient admitted de-escalated to Ancef as per infectious disease.
His cultures were without growth to date. He was discharged on 7 days of Keflex.
Paroxysmal atrial fibrillation: The patient had a history of ablation in 2021. His Toprol-XL was continued. His home flecainide was stopped. In the future he can consider changing to an alternative antiarrhythmic such as sotalol or Tikosyn. His
Eliquis was initially held preprocedure and then was restarted.
Chronic HFpEF: Since the patient's hydrochlorothiazide was stopped he was given 1 dose of IV Lasix. His Toprol-XL was continued. Patient can consider starting Aldactone in the near future.
DM2: a1c was 6.3%. Farxiga was continued.
Essential hypertension: The patient's Norvasc/enalapril/Toprol-XL were continued. His hydrochlorothiazide was stopped.
Discharge Plan
-
Patient Disposition: Home (Routine Discharge)
Discharge Diagnosis/Procedures: Loop recorder explant due to pocket infection
Condition: Good
Diet: Diabetic, Carb Controlled
Activity: As tolerated
Driving Restrictions: As prior to admission
Bathing Restrictions: After seen by
Wound Care: please change dressing on Thursday 03/08 remove dressing, ok to shower then cover with dry dressing and paper tape.
Specialty Instructions: Weigh Daily- Call MD for wt gain/loss 3 lbs overnight/5 lbs in 1 week
Referrals:
[facility] [Provider Group] - 03/13/24 1:40 pm (Incision check appointment)
UNKNOWN - PT DOES,NOT KNOW [Family Provider] - in less than 1 week
Prescriptions:
New
cephalexin 500 mg capsule
500 mg PO Q6H 7 Days Qty: 28 0RF
Continued
atorvastatin 20 mg Tablet
20 mg PO HS
enalapril maleate 20 mg Tablet
20 mg PO DAILY
metoprolol succinate 100 mg Tablet Extended Release 24 Hr
100 mg PO DAILY
glucosamine sulfate [Glucosamine] 500 mg Tablet
500 mg PO DAILY
therapeutic multivitamin Tablet
1 tab PO DAILY
potassium chloride [Klor-Con M20] 20 mEq Tablet,Er Particles/Crystals
20 meq PO Q48H
calcium carbonate 500 mg calcium (1,250 mg) Tablet
500 mg PO DAILY
ascorbic acid (vitamin C) [Vitamin C] 500 mg Tablet
500 mg PO DAILY
tamsulosin 0.4 mg Capsule
0.4 mg PO HS
amlodipine 10 mg Tablet
10 mg PO DAILY
omega 6-zop-nxi-fish oil [Fish Oil] 1,000 mg (120 mg-180 mg) Capsule
1 cap PO DAILY
Eliquis 5 mg Tablet
5 mg PO BID
dapagliflozin propanediol [Farxiga] 10 mg Tablet
10 mg PO DAILY
turmeric 400 mg Capsule
400 mg PO DAILY
PreserVision AREDS 4,296 mcg-226 mg-90 mg Capsule
1 cap PO BID
Discontinued
sulfamethoxazole-trimethoprim [Bactrim DS] 800-160 mg Tablet
1 tab PO BID
Patient Comments:
03/04/24: to take for 7 days, filled 03/02/24
flecainide 100 mg Tablet
100 mg PO Q12H
hydrochlorothiazide 25 mg Tablet
25 mg PO DAILY
Discharge Orders:
Discharge Patient (As Directed); Ordered 03/06/24
Ordered By: Ortega Snyder
Discharge Date and Time
Discharge Date/Time: 03/06/24 17:12
Print Language: NEPALI
== END 2024-03-06 17:12 | disposition home or self-care (01) | DRG 314 ==
LOC: 2 NORTH 21:56
PROVIDERS: Nurse Practitioner Adult Health; ADMITTING PHYSICIAN Internal Medicine; ATTENDING PHYSICIAN Internal Medicine; CONSULT PHYSICIAN Internal Medicine Infectious Disease; EMERGENCY PHYSICIAN Emergency Medicine; OTHER PHYSICIAN Internal Medicine Cardiovascular Disease
PROC: 0JPT02Z Removal of Monitoring Device from Trunk Subcutaneous Tissue and Fascia, Open Approach (ICD-10-PCS; 2024-03-05)
DX: T82.7XXA Infection and inflammatory reaction due to other cardiac and vascular devices, implants and grafts, initial encounter (principal); A41.9 Sepsis, unspecified organism; T81.31XA Disruption of external operation (surgical) wound, not elsewhere classified, initial encounter; I50.32 Chronic diastolic (congestive) heart failure; E11.9 Type 2 diabetes mellitus without complications; E78.00 Pure hypercholesterolemia, unspecified; I11.0 Hypertensive heart disease with heart failure; E87.6 Hypokalemia; I48.0 Paroxysmal atrial fibrillation; N40.0 Benign prostatic hyperplasia without lower urinary tract symptoms; Y71.0 Diagnostic and monitoring cardiovascular devices associated with adverse incidents; Y83.1 Surgical operation with implant of artificial internal device as the cause of abnormal reaction of the patient, or of later complication, without mention of misadventure at the time of the procedure; Z79.01 Long term (current) use of anticoagulants; Z79.84 Long term (current) use of oral hypoglycemic drugs; Z79.899 Other long term (current) drug therapy
CPT/HCPCS: 33286; 80048; 80053; 82962; 83036; 83605; 85025; 85027; 87040; 87070; 87205; 87811; 93005; 93306; 96365; 99285

== ENCOUNTER 2024-03-08 10:39 | Inpatient (IN) | payer MEDICARE, SELFPAY ==
[2024-03-08] VITALS (16 sets, daily range): BP systolic 105–146; BP diastolic 61–90; PULSE 71–72; O2SAT 94; BMI 28.9
--- NOTE | 2024-03-08 07:19 | ED.GENMED ---
History of Present Illness
General
Chief Complaint: Breathing Problem
Source: patient
Exam Limitations: none
Time Seen by Provider: 03/08/24 07:05
History of Present Illness
History of Present Illness:
See MDM
Past History
Past History
ED Past Medical History: Arrthythmia, HTN and NIDDM
ED Past Surgical History: Cardiac
Social History
Tobacco: Non-smoker
Alcohol: Occasional
Drug: None
Personal:
Living: with family
Employment: Retired
Phy Exam
Physical Exam
Physical Exam:
See MDM
Scores
Heart Failure Risk
Heart Failure Risk Score: Yes
History of Stroke or TIA: No
History of intubation for respiratory distress: No
Heart rate on ED arrival >/= 110: No
SaO2 <90% on arrival on room air: Yes
HR >/=110 during 3min walk test (or too ill to perform test): No
ECG has acute ischemic changes: No
Urea >/=12mmol/L (BUN 33.6mg/dL): No
Serum CO2>/=35mmol/L: No
Troponin I or T elevated to GA Level (0.4mg/dL): No
NT-proBNP >/=5,000ng/L (5,000pg/ml): No
HF Risk Score: 1
Admission Status: MEDIUM RISK 5.1% Consider observation or discharge to home with homecare & f/u visit to PCP/Counselor Education Professor, or SNF for treatment
Course
Orders/Labs/Results
Orders:
Orders
03/08/24 07:18
CR Chest - 2 Views Urgent
Comment:
Reason For Exam: fever, cough, recent watchman removal
03/08/24 07:23
Electrocardiogram (*1) Urgent
Reason for Study: Shortness of Breath
EKG- Treatment ONCE
03/08/24 07:55
COVID-19 Antigen Urgent
Source: Nasal Swab
Complete Blood Count/With Diff Urgent
Comprehensive Metabolic Panel Urgent
Lactic Acid Q4H
Comment: CANCEL 2nd LACTIC ACID IF 1st LACTIC ACID IS LESS THAN 2
NT-proBNP Urgent
Troponin I Urgent
Blood Culture Urgent
RYAN Source: Blood/Venous
Specimen Description:
Influenza A+B Rapid Molecular Urgent
RYAN Source: Nasal Swab
Specimen Description:
03/08/24 08:19
Furosemide [Lasix] 40 mg IV NOW STA
Piperacillin/Tazo 3.375 Gram [Zosyn] 3.375 gram in 50 ml IV NOW
Vancomycin [Vancocin] 2,000 mg 0.9% Sodium Chloride 500 ml [Nss] 500 ml IV NOW
03/08/24 08:28
CT Chest With Iv Contrast Urgent
Comment:
Reason For Exam: SOB, fevers
03/08/24 08:44
Urinalysis Reflex To Culture Urgent
Piperacillin/Tazo 4.5 Gram [Zosyn] 4.5 gram in 100 ml IV NOW
03/08/24 11:30
Lactic Acid Q4H
Comment: CANCEL 2nd LACTIC ACID IF 1st LACTIC ACID IS LESS THAN 2
Abnormal Lab Results
03/08/24
07:55
RBC 4.16 L 10^6/uL
(4.70-6.10)
Hct 37.7 L %
(39.0-52.0)
MCH 31.7 H pg
(27.0-31.0)
Abs Immat Gran (auto) 0.1 H 10^3/uL
(0-0.05)
Absolute Neuts (auto) 8.5 H 10^3/uL
(1.4-6.5)
Absolute Lymphs (auto) 0.8 L 10^3/uL
(1.2-3.4)
Absolute Monos (auto) 0.7 H 10^3/uL
(0.1-0.6)
Neutrophils % 83.7 H %
(42.2-75.2)
Lymphocytes % 8.2 L %
(20.5-51.1)
Glucose 119 H mg/dl
(70-99)
Total Bilirubin 2.2 H D mg/dl
(0.2-1.3)
03/08/24 07:55
03/08/24 07:55
Vital Signs
Initial and Last Documented VS:
Initial Vital Signs
Temp Pulse Resp BP Pulse Ox
97.6 F 72 24 129/69 80
03/08/24 06:56 03/08/24 06:56 03/08/24 06:56 03/08/24 06:56 03/08/24 06:56
Last Documented Vital Signs
Temp Pulse Resp BP Pulse Ox
97.6 F 72 24 129/66 80
03/08/24 06:56 03/08/24 08:36 03/08/24 06:56 03/08/24 08:36 03/08/24 06:56
MDM/Problems Addressed
Differential Diagnosis Includes:
HPI and MDM Narrative:
73-year-old male presenting with fever and hypoxia. Patient had a recent complicated medical history. Patient had a watchman placed. He was developing fevers and he was placed on Bactrim. He was admitted and it was believed that the watchman was
infected. He had a course of vancomycin and Zosyn. When he was discharged, he was placed on Keflex. When he developed fevers at home, he was placed back on Bactrim. Patient presents now with mild hypoxia. On arrival, patient is hypoxic.
Patient requiring supplemental oxygen. He is back on his Eliquis. He denies leg pain or leg swelling.
Given his complicated history, will obtain chest x-ray and cultures and lactic acid. Will look for alternative source of infection such as pneumonia or COVID
Physical exam
General: Mildly uncomfortable
HEENT: protecting airway
Neck: appears supple
CV: No evidence of cyanosis. Regular rate. No murmur
Chest: Wound dressing over watchman site removal. No surrounding cellulitis
Resp: No accessory muscle use. Shallow breaths.
Abd: Non-distended
Extremities: No deformities. No leg edema
Neuro: alert
Psych: Normal affect
Skin: Warm
Problems Addressed including Acute and Chronic Conditions affecting care:
1. Fever and shortness of breath
Acuity: acute
Prognosis: stable
Details: Will obtain chest x-ray looking for bacterial pneumonia. Will obtain COVID testing
2. Hypoxia
Acuity: acute
Prognosis: unstable
Details: Patient requiring supplemental
Updates
Chest x-ray consistent with pulmonary edema and pneumonia.. Will start Lasix and IV vancomycin and Zosyn
Differential Diagnosis (but not limited to): CHF exacerbation, pneumonia, COVID
Testing considered: CT angio to rule out PE but he is anticoagulated on Eliquis
Drug therapy (if applicable): OTC meds, please see d/c instruction regarding Rx drugs
Amount and/or Complexity of Data Reviewed
Clinical info obtained from: Patient
External data reviewed: N/A
Labs I independently reviewed (but not limited to): Elevated BNP
Radiology: X-ray independently reviewed: Chest x-ray consistent with pulmonary edema and right middle lobe pneumonia
Pulse Ox: hypoxic
EKG independently reviewed: Sinus rhythm, normal axis, no STEMI
Fisher Weir: Sinus rhythm
Critical Care: N/A
Risk of Complication:
Social Determinants of health: Good social support
Discussed with other providers: Hospitalist
Escalation of Care includes Admit/Obs: Given the pneumonia and pulmonary edema, will admit
Occasional wrong word or 'sound a like' substitutions may have occurred due to the inherent limitations of voice recognition software. Read the chart carefully and recognize, using context, where substitutions have occurred.
*Critical Care Note
Total Time (30-74mins, 75-104mins- exclusive of procedures): Not Applicable
ED Attending Note
-
Portions of this chart may have been created with voice recognition software.� Occasional wrong word or��sound alike� substitutions may have occurred due to the inherent limitations of voice recognition software.
Discharge Plan
Departure
Patient Disposition: Admit
Date of Disposition: 03/08/24
Time of Disposition: 08:47
Admit to: Telemetry
Presentation/result/management discussed w/ accepting MD/DO: Hospitalist
Discharge Problem:
Pulmonary edema, PNA (pneumonia), Hypoxia
Prescriptions:
No Action
atorvastatin 20 mg Tablet
20 mg PO HS
enalapril maleate 20 mg Tablet
20 mg PO DAILY
metoprolol succinate 100 mg Tablet Extended Release 24 Hr
100 mg PO DAILY
glucosamine sulfate [Glucosamine] 500 mg Tablet
500 mg PO DAILY
therapeutic multivitamin Tablet
1 tab PO DAILY
potassium chloride [Klor-Con M20] 20 mEq Tablet,Er Particles/Crystals
20 meq PO Q48H
calcium carbonate 500 mg calcium (1,250 mg) Tablet
500 mg PO DAILY
ascorbic acid (vitamin C) [Vitamin C] 500 mg Tablet
500 mg PO DAILY
tamsulosin 0.4 mg Capsule
0.4 mg PO HS
amlodipine 10 mg Tablet
10 mg PO DAILY
omega 0-vyk-lmw-fish oil [Fish Oil] 1,000 mg (120 mg-180 mg) Capsule
1 cap PO DAILY
Eliquis 5 mg Tablet
5 mg PO BID
dapagliflozin propanediol [Farxiga] 10 mg Tablet
10 mg PO DAILY
turmeric 400 mg Capsule
400 mg PO DAILY
PreserVision AREDS 4,296 mcg-226 mg-90 mg Capsule
1 cap PO BID
cephalexin 500 mg capsule
500 mg PO Q6H 7 Days Qty: 28 0RF
Interventions
Interventions:
*Risk Screen - Suicide Last Done: 03/08/24 06:56
*General Assessment Last Done: 03/08/24 06:56
*Neglect/Abuse Screening Last Done: 03/08/24 06:56
*ED COVID-19 Vaccine History Last Done: 03/08/24 06:56
Discharge Date and Time
Print Language: TURKISH
[2024-03-08 08:10] LABS: % Basophils 0.4 % (0-2); % Eosinophils 0.1 % (0-6); % Immature Granulocytes 0.5 % (0-0.5); % Lymphocytes 8.2 % (20.5-51.1); % Monocytes 7.1 % (1.7-9.3); % Neutrophils 83.7 % (42.2-75.2); Absolute Immature Granulocytes 0.1 10^3/uL (0-0.05); Absolute Lymphocytes 0.8 10^3/uL (1.2-3.4); Absolute Monocytes 0.7 10^3/uL (0.1-0.6); Absolute Neutrophils 8.5 10^3/uL (1.4-6.5); Hematocrit 37.7 % (39.0-52.0); Hemoglobin 13.2 g/dL (13.0-18.0); Mean Corpuscular Hgb 31.7 pg (27.0-31.0); Mean Corpuscular Volume 90.6 fL (80.0-94.0); Nucleated Red Blood Cells % 0 % (-); Platelet Count 169 10^3/uL (130-400); Red Blood Cell Count 4.16 10^6/uL (4.70-6.10); Red Cell Dist. Width 13.5 % (11.5-14.5); White Blood Cell Count 10.1 10^3/uL (4.8-10.8)
[2024-03-08 08:29] LABS: Lactic Acid 1.4 mmol/L (0.7-2.0)
[2024-03-08 08:30] LABS: ALT (SGPT) 45 U/L (0-50); AST (SGOT) 45 U/L (17-59); Albumin 4.1 g/dl (3.5-5.0); Alkaline Phosphatase 76 U/L (38-126); Blood Urea Nitrogen 18 mg/dl (9-20); Carbon Dioxide 27 mmol/L (22-30); Chloride 99 mmol/L (98-107); Estimated Creatinine Clearance 87 ml/min; Glucose 119 mg/dl (70-99); Potassium 3.8 mmol/L (3.5-5.1); Sodium 139 mmol/L (135-145); Total Bilirubin 2.2 mg/dl (0.2-1.3); Total Protein 6.6 g/dl (6.3-8.2); eGFR > 60.00
[2024-03-08] MEDS: LASIX 40 MG IV (08:36)
[2024-03-08 08:40] LABS: COVID-19 Antigen Negative (Negative); NT-proBNP 1830 pg/ml; Troponin I 0.014 ng/ml
[2024-03-08] MEDS: ZOSYN 100 IV (09:04)
--- NOTE | 2024-03-08 09:14 | PHANOTE ---
Addendum entered and electronically signed by Laura Gallegos [facility] 03/08/24 09:29:
Update to note: Returned to patient's room to confirm that patient took a flecanide 100mg dose this AM. Per patient and son, patient did take medication stating 'we returned to home medications.' Also, patient did not take a diuretic this AM. Per
, patient took furosemide 40mg yesterday morning.
Original Note:
Met with patient to complete medication review. Patient stated that he resumed flecanide on discharge from on 03/06/24. He reported taking a flecanide 100mg dose this AM [03/08/24]. Patient and family also stated that patient took 2 diuretic tablets
this AM as they believed that he was in heart failure.
[2024-03-08 09:56] LABS: Urine Albumin Trace (Neg - Trace); Urine Bilirubin Negative (Negative); Urine Character Clear (Clear); Urine Color Yellow; Urine Glucose 3+ (Negative); Urine Ketone 2+ (Negative); Urine Leukocyte Trace (Negative); Urine Nitrite Negative (Negative); Urine Occult Blood Negative (Negative); Urine Specific Gravity 1.015 (<1.030); Urine Urobilinogen Negative (Neg - 1+)
--- NOTE | 2024-03-08 10:23 | HPS.HSE ---
Family Physician
-
Family Physician: NOT KNOW UNKNOWN - PT DOES
Chief Complaint
-
Fever
History of Present Illness
73 y/o M with PMHx:
Recent admission 03/04/24-03/06/24 for infected Linq
Paroxysmal atrial fibrillation
Chronic HFpEF
DM2
Essential hypertension
who p/w CC fever. On the evening of 03/06/24 the pt had a temp of approximately 100.8 F and rigors. He had been discharged on Keflex but had Bactrim at home and started taking that. The patient developed dry cough. This morning the patient had a
fever of 103 �F. He also had shortness of breath. This morning family noted that he had elevated JVP. It was also noted the patient was saturating in the 70s on room air. When asked the patient endorses orthopnea. He denies chest pain. No
other acute complaints. In the ER the patient was requiring 6L NC O2.
Medical History
Past Medical History
Past Medical History: Reports Other (as per HPI)
Past Surgical History: Reports Other (N/A)
Social History
Tobacco: Non-smoker
Alcohol: None
Drug: None
Family History
Family History: Not pertinent
Allergies / Home Medications
Allergies reflects when Allergies were last updated in [employer].
Home Medications with original date entered in [employer]
Allergy/Medication List:
Allergies
Allergy/AdvReac Type Severity Reaction Status Date / Time
No Known Allergies Allergy Unverified 03/08/24 06:56
Home Medications
amlodipine 10 mg tablet 10 mg PO DAILY Blood Pressure 03/04/24
apixaban 5 mg tablet (Eliquis) 5 mg PO BID Blood Clot Prevention/Tx 03/04/24
ascorbic acid (vitamin C) 500 mg tablet (Vitamin C) 500 mg PO DAILY Supplement 03/04/24
atorvastatin 20 mg tablet 20 mg PO HS High Cholesterol 03/04/24
calcium carbonate 500 mg PO DAILY Supplement 03/04/24
dapagliflozin propanediol 10 mg tablet (Farxiga) 10 mg PO DAILY Diabetes 03/04/24
enalapril maleate 20 mg tablet 20 mg PO DAILY Blood Pressure 03/04/24
glucosamine sulfate 500 mg tablet (Glucosamine) 500 mg PO DAILY Supplement 03/04/24
metoprolol succinate 100 mg tablet,extended release 24 hr 100 mg PO DAILY Heart Failure 03/04/24
omega 9-pyu-wil-fish oil 1,000 mg (120 mg-180 mg) capsule (Fish Oil) 1 cap PO DAILY High Cholesterol 03/04/24
potassium chloride 20 mEq tablet,extended release(part/cryst) (Klor-Con M) 20 meq PO Q48H Electrolyte Repletion 03/04/24
tamsulosin 0.4 mg capsule 0.4 mg PO HS Urinary Issue 03/04/24
therapeutic multivitamin 1 tab PO DAILY Supplement 03/04/24
turmeric 400 mg capsule 400 mg PO DAILY Supplement 03/04/24
vitamins A,C,B-jheh-asfloe 4,296 mcg-226 mg-90 mg capsule (PreserVision AREDS) 1 cap PO BID Supplement 03/04/24
cephalexin 500 mg capsule 500 mg PO Q6H Infection 03/08/24
Review of Systems
-
History Source: Patient
A 12 point ROS was completed and negative except as noted: Yes
Physical Exam
Vital Signs
Vital Signs
Temp Pulse Resp BP Pulse Ox
97.6 F 78 15 141/90 92
03/08/24 06:56 03/08/24 09:45 03/08/24 09:45 03/08/24 09:41 03/08/24 09:57
Physical Exam
General: Other (.)
Laboratory Results
-
03/08/24 07:55
03/08/24 07:55
Laboratory Results
Lactic Acid 1.4 mmol/L (0.7-2.0) 03/08/24 07:55
Total Bilirubin 2.2 mg/dl (0.2-1.3) H D 03/08/24 07:55
AST 45 U/L (17-59) 03/08/24 07:55
ALT 45 U/L (0-50) 03/08/24 07:55
Alkaline Phosphatase 76 U/L (38-126) 03/08/24 07:55
Troponin I 0.014 ng/ml 03/08/24 07:55
Impression/Plan
-
Gen: NAD, AAOx3.
Eyes: EOMI, PERRLA, no scleral icterus.
Neck: supple.
CV: RRR, +S1/S2, no m/r/g.
Resp: mild rales in the bases.
Abd: +BS, soft, NT, ND
Skin: No rashes. L chest with incision that is without purulent discharge or surrounding cellulitis
Neuro: CN 2-12 intact, non-focal.
Psych: Normal mood and affect.
CT chest with IV contrast: Bilateral multifocal pneumonia with trace parapneumonic effusions.
Acute hypoxic respiratory failure due to B/L PNA:
-with rales in the bases and proBNP 1829 pt was given 40mg IV Lasix with > 1100cc UOP
-I do not think the primary process is CHF, especially in light of the patient's recent echocardiogram with an EF 50-55%. c/s cards for opinion.
-cont with Zosyn. Vanco ordered by ER but, as per discussion with Dr. Temple, Vanco will not be given until Dr. Temple sees the pt.
-follow BCxs
-COVID/Flu NEG
-check Legionella urinary antigen
-c/s pulm, discussed with Dr. Perry
-cont NC O2, wean as tolerated
-IS, ambulate pt
Paroxysmal atrial fibrillation:
-h/o ablation in 2022
-Continue Toprol-XL/Eliquis
Chronic HFpEF:
-cont BB
-received one dose IV Lasix in ER
-cards to see
DM2:
-a1c 6.3%
-SSI/accuchecks/diabetic diet
-cont Farxiga
Essential hypertension:
-Continue Norvasc/enalapril/Toprol-XL
FULL/Eliquis/IMU
[2024-03-08 10:24] LABS: Urine Bacteria Few (Negative); Urine Red Blood Cell 0-2 /HPF (0-2)
--- NOTE | 2024-03-08 11:20 | CON.PUL ---
Consultation
Consultation Request
Date/Time Consultation Requested: 03/08/2024 - 1010
Date/Time Consultation Performed: 03/08/2024 - 110
Requesting Provider: Dr. Snyder
Performing Provider: Dr. Perry
Reason for Consultation: PNA/Hypoxia
Medical History
-
Chief Complaint: Worsening SOB/fevers
History of Present Illness:
73-year-old male with a past medical history of A-fib on Eliquis, chronic HFpEF, hypertension + DM type II who presents with worsening SOB, dry cough + fevers. Patient recently hospitalized from due to sepsis from infected implantable
loop recorder site infection s/p explantation on 03/05/2024. ID saw the patient and he was treated with vancomycin/Zosyn. He was discharged on 03/26 with Keflex. After he returned home he had a fever to 100.8 �F. His fevers continued despite
taking Bactrim which she had at home. He also developed progressive shortness of breath. In the ER he was afebrile to 97.6 �F, pulse rate 72, breathing at 24 breaths/min, BP 129/69, and SpO2 80% on room air, which improved to 90% on 6 L/min nasal
cannula. Labs showed normal WBC at 10.1, Hb 13.2, T. bili elevated 2.2, proBNP elevated 1830, troponin 0.014, and COVID-19 antigen negative. Blood cultures were collected. CXR showed bilateral perihilar opacities suspicious for multifocal
pneumonia, which was confirmed on CT chest showing bilateral upper lobe/lower lobe air bronchograms with patchy consolidation and small pleural effusions. Patient given Lasix in the ER (40 mg IVP X1) + Zosyn, and admitted to the hospitalist
service. ID + cardiology consulted, and now pulmonary consulted for additional management/recommendations.
When I saw the patient, he was in bed, on 6 L/min nasal cannula saturating 95%. Heart rate 70 and BP 118/61. He feels well, although still has a dry cough. Cough occurs most when laying flat. Also endorses shortness of breath with movement as
well as when laying flat. He denies chest pain, MCKAY, abdominal pain, nausea, vomiting, fevers or chills.
PMHx: Paroxysmal A-fib on Eliquis, chronic HFpEF, DM type II, hypertension
PSHx: Cardiac ablation, loop recorder implantation, cholecystectomy
Past Medical History
Past Medical History: Other (Above as per HPI)
Past Surgical History: Other (Above as per HPI)
Social History
Tobacco: Non-smoker
Alcohol: Occasional
Drug: None
Personal:
Employment: Retired
Family History
Family History: Reviewed & Not Pertinent
Allergies / Home Medications
Allergies
Allergy/AdvReac Type Severity Reaction Status Date / Time
No Known Allergies Allergy Unverified 03/08/24 06:56
Home Medications
�Medication �Instructions �Recorded �Confirmed �Last Taken �Type
amlodipine 10 mg tablet 10 mg PO DAILY Blood Pressure 03/04/24 03/08/24 03/08/24 History
apixaban 5 mg tablet (Eliquis) 5 mg PO BID Blood Clot 03/04/24 03/08/24 03/08/24 History
Prevention/Tx
ascorbic acid (vitamin C) 500 mg 500 mg PO DAILY Supplement 03/04/24 03/08/24 03/08/24 History
tablet (Vitamin C)
atorvastatin 20 mg tablet 20 mg PO HS High Cholesterol 03/04/24 03/08/24 03/07/24 History
calcium carbonate 500 mg PO DAILY Supplement 03/04/24 03/08/24 03/07/24 History
dapagliflozin propanediol 10 mg 10 mg PO DAILY Diabetes 03/04/24 03/08/24 03/08/24 History
tablet (Farxiga)
enalapril maleate 20 mg tablet 20 mg PO DAILY Blood Pressure 03/04/24 03/08/24 03/08/24 History
glucosamine sulfate 500 mg tablet 500 mg PO DAILY Supplement 03/04/24 03/08/24 03/08/24 History
(Glucosamine)
metoprolol succinate 100 mg 100 mg PO DAILY Heart Failure 03/04/24 03/08/24 03/08/24 History
tablet,extended release 24 hr
omega 3-wwa-vbw-fish oil 1,000 mg 1 cap PO DAILY High Cholesterol 03/04/24 03/08/24 03/08/24 History
(120 mg-180 mg) capsule (Fish Oil)
potassium chloride 20 mEq 20 meq PO Q48H Electrolyte 03/04/24 03/08/24 03/07/24 History
tablet,extended Repletion
release(part/cryst) (Klor-Con M)
tamsulosin 0.4 mg capsule 0.4 mg PO HS Urinary Issue 03/04/24 03/08/24 03/07/24 History
therapeutic multivitamin 1 tab PO DAILY Supplement 03/04/24 03/08/24 03/08/24 History
turmeric 400 mg capsule 400 mg PO DAILY Supplement 03/04/24 03/08/24 03/08/24 History
vitamins A,C,C-zdqm-vbnxrt 4,296 1 cap PO BID Supplement 03/04/24 03/08/24 03/08/24 History
mcg-226 mg-90 mg capsule
(PreserVision AREDS)
cephalexin 500 mg capsule 500 mg PO Q6H Infection 03/08/24 03/08/24 03/08/24 History
Review of Systems
-
History Source: Patient
All other systems: Negative unless noted
Vitals / Labs / Diagnostic Testing
Vital Signs
Temp Pulse Resp BP Pulse Ox
97.6 F 78 15 141/90 92
03/08/24 06:56 03/08/24 09:45 03/08/24 09:45 03/08/24 09:41 03/08/24 09:57
Lab Data
03/08/24 07:55
03/08/24 07:55
Microbiology
03/08/24 07:55 Nasal Swab Influenza Types A & B (ALYSSA) - Final
Negative for Influenza A & B, NAAT
Negative results must be combined with clinical observations
and patient history.
Nucleic Acid Amplification test (NAAT)performed on the
[employer] ID NOW platform.
Diagnostic Testing:
Physical Exam
-
HEENT: Normocephalic and Anicteric
Cardiovascular: Peripheral Edema (negative) and Other (normal heart rate)
Respiratory: Wheeze (negative), Rales (Bilateral), Rhonchi (negative) and Non-Labored Respirations
GI: Soft, Non Distended, Non Tender and Normal Bowel Sounds
Neurology: AO x 3 and Tremors (negative)
Skin: Warm and Dry
General: Respiratory Distress (negative), Comfortable, Fever (negative) and Chills (negative)
Assessment
-
Assessment: 73-year-old male with a past medical history of A-fib on Eliquis, chronic HFpEF, hypertension + DM type II who presents with worsening SOB, dry cough + fevers. Patient recently hospitalized from due to sepsis from infected
implantable loop recorder site infection s/p explantation on 03/05/2024. ID saw the patient and he was treated with vancomycin/Zosyn. He was discharged on 03/26 with Keflex. After he returned home he had a fever to 100.8 �F. His fevers continued
despite taking Bactrim which she had at home. He also developed progressive shortness of breath. In the ER he was afebrile to 97.6 �F, pulse rate 72, breathing at 24 breaths/min, BP 129/69, and SpO2 80% on room air, which improved to 90% on 6
L/min nasal cannula. Labs showed normal WBC at 10.1, Hb 13.2, T. bili elevated 2.2, proBNP elevated 1830, troponin 0.014, and COVID-19 antigen negative. Blood cultures were collected. CXR showed bilateral perihilar opacities suspicious for
multifocal pneumonia, which was confirmed on CT chest showing bilateral upper lobe/lower lobe air bronchograms with patchy consolidation and small pleural effusions. Patient given Lasix in the ER (40 mg IVP X1) + Zosyn, and admitted to the
hospitalist service. ID + cardiology consulted, and now pulmonary consulted for additional management/recommendations.
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
Impression:
#Multifocal pneumonia with small bilateral pleural effusions
#Acute decompensated heart failure/acute HFpEF
#Acute respiratory failure with hypoxia on supplemental oxygen due to above
#Recent implantable loop recorder site infection s/p explantation on 03/05/2024
#History of A-fib s/p ablation (2021) with recurrence maintained on flecainide + Eliquis
#DM type II
#Abnormal urinalysis with trace leukocyte esterase and few urine bacteria � patiently is currently asymptomatic with no dysuria, urinary discharge, lower abdominal pain or fever/chills
Plan:
- Continue ABx as per ID - currently on rocephin + doxy
- MRSA swab negative
- Check sputum Cx if pt can provide a decent sample
- Follow up blood Cx (collected 03/08/2024)
- Diuresis as per cardiology
- trend daily weight, UOP and I/O
- Trend sCr and re-assess volume status daily
- Maintain SpO2 >90-94% with supplemental O2 and wean down as tolerated
- Incentive spirometer encouraged
- PT/OT
- Replete electrolytes with K>4, Mg>2
- Maintain euglycemia with goal BG >100 and <180
- prn nebulized bronchodilators - pt not currently bronchospastic
- DVT ppx: Eliquis
Pulmonary service will continue to follow along.
Data:
CT Chest with IV contrast 03/08/2024: Bilateral multifocal pneumonia with trace parapneumonic effusions.
Total time spent today was 75 minutes for this encounter. Time includes reviewing laboratory test/imaging results, reviewing pertinent medical records, obtaining and reviewing medical history, performing an appropriate exam, ordering medications,
tests and procedures. Time also includes documentation of this encounter, coordinating patient care and communicating with other healthcare professionals. Total time does not include separately billed tests performed on this date of service.
--- NOTE | 2024-03-08 11:59 | CON.ID ---
Consultation
-
Date/Time Consultation Requested: 03/08/2024 08:57
Date/Time Consultation Performed: 03/08/2024 1100
Requesting Provider: Dr. Snyder
Performing Provider: Dr. Temple
Reason for Consultation: Fever; pulmonary infiltrates; suspected pneumonia
Chief Complaint / Past History
History of Present Illness
David Mata is a 73-year-old man being evaluated at the request of Dr. Snyder in regards to suspected pneumonia and fever. History is obtained from chart review, along with patient interview.
The patient is known to the Infectious Disease service, having been seen on his last admission dated 03/04 - 03/07, during which she was evaluated for a Linq device infection, with explantation. At discharge, he was placed on a course of Keflex, but
intraoperative pocket culture has been negative.
Upon returning home, he found to have a temperature to 100.8 degrees by his family. He previously had been on Bactrim, and his family chose to resume that because of the fever. Over the next several days he has had ongoing fevers, with a
temperature to 103.8 degrees last p.m. He additionally has had progressive shortness of breath, and at presentation had a depressed pulse ox. Imaging in the ER revealed pulmonary infiltrates on chest x-ray and CAT scan. Infectious Diseases is
asked to comment upon further antimicrobial therapy in the context of possible pneumonia.
The patient notes no sick contacts. He has a slight cough, but no sputum production. He denies any headache. He denies any chest pain. He denies any abdominal pain, nausea or vomiting.
Past History
Additional Past Medical History:
Paroxysmal A-fib
HTN
DM
Dyslipidemia
Additional Past Surgical History:
Cardiac ablation (2021)
Loop recorder implantation
Cholecystectomy
Allergy History:
No Known Allergies Allergy (Unverified 03/08/24 06:56)
Medications Reviewed: Yes
Current Antibiotics:
outpatient keflex & bactrim
Social History
Tobacco: Non-Smoker
Alcohol: Occasional
Drug: None
Personal:
Living: With Family
Employment: Retired
Family History
Family History: Not Pertinent
Review of Systems
Vital Signs
Temp Pulse Resp BP Pulse Ox
99.8 F 74 25 135/62 91
03/08/24 09:00 03/08/24 11:30 03/08/24 11:30 03/08/24 11:00 03/08/24 11:30
Physical Exam
Physical Exam
Constitutional: No Acute Distress, Comfortable and Non-toxic
Head: Normocephalic
Eyes: Pupils Equal, Pupils Round, No Conjunctival Hemorrhage and Sclera Anicteric
Oral: No Thrush and No Ulcers
Cardiovascular: Regular Rate and S1/S2; Negative S3/S4 or Murmur
Pulmonary: Rales, Coarse and Other (Mildly labored); Negative Wheezes
Gastrointestinal: Soft, Non Tender and Non Distended
Genito-Urinary: Negative Patrick
Extremities: Negative Edema, Cyanosis or Erythema
Skin: Negative Warm, Dry, Rash or Jaundice
Neurological: Awake, Alert and Oriented
Psychological: Calm
Lab / Diagnostic Study Results
03/08/24 07:55
03/08/24 07:55
Abs Immat Gran (auto) 0.1 10^3/uL (0-0.05) H 03/08/24 07:55
Absolute Neuts (auto) 8.5 10^3/uL (1.4-6.5) H 03/08/24 07:55
Absolute Lymphs (auto) 0.8 10^3/uL (1.2-3.4) L 03/08/24 07:55
Absolute Monos (auto) 0.7 10^3/uL (0.1-0.6) H 03/08/24 07:55
Absolute Basos (auto) 0.0 10^3/uL (0-0.2) 03/08/24 07:55
Immature Gran % 0.5 % (0-0.5) 03/08/24 07:55
Neutrophils % 83.7 % (42.2-75.2) H 03/08/24 07:55
Lymphocytes % 8.2 % (20.5-51.1) L 03/08/24 07:55
Monocytes % 7.1 % (1.7-9.3) 03/08/24 07:55
Eosinophils % 0.1 % (0-6) 03/08/24 07:55
Basophils % 0.4 % (0-2) 03/08/24 07:55
Lactic Acid 1.0 mmol/L (0.7-2.0) 03/08/24 11:34
Ur Squamous Epith Cells 11-15 /LPF (Few) 03/08/24 09:44
Microbiology Results
Micro:
03/08/24 07:55 Influenza Types A & B (ALYSSA) - Final
Nasal Swab Negative for Influenza A & B, NAAT
Negative results must be combined with clinical observations
and patient history.
Nucleic Acid Amplification test (NAAT)performed on the
[employer] platform.
03/08/24 07:55 Blood Culture - Pending
Blood/Venous
Imaging :
03/08/2024 CXR (2 view): Bilateral perihilar airspace opacities (right greater than left) suspicious for multifocal pneumonia. Film personally reviewed, and airspace opacities/infiltrates appear to be somewhat dependent in nature.
03/08/2024 CT chest with contrast: Patchy airspace opacities within the bilateral lungs involving all lobes consistent with multifocal pneumonia. Again, film personally reviewed and airspace opacities/infiltrates appear to be dependent in the lobes
where present.
Assessment / Plan
Shortness of breath
Bilateral pulmonary infiltrates
Fever
CHF (pBNP = 1800)
Paroxysmal A-fib
HTN
DM
Recommendations:
Although radiology reads the x-ray as pneumonia, I have additional concerns as to the possibility of congestive heart failure, especially in the context of an elevated proBNP.
Will check procalcitonin.
Case previously discussed with ER and Hospitalist. Would hold on vancomycin unless MRSA PCR screen positive.
Given CHF, would avoid Zosyn given its significant salt load. Will begin empiric Rocephin and doxycycline.
Follow temperature curve.
Monitor white count.
[2024-03-08 12:19] LABS: Procalcitonin 0.18 ng/ml (0.0-0.25)
--- NOTE | 2024-03-08 12:28 | CON.CAR ---
Consultation
Consultation Request
Date/Time Consultation Requested: 03/08/2024
Date/Time Consultation Performed: 03/08/2024
Requesting Provider: Dr. Snyder
Performing Provider: Dr. Weinstein
Reason for Consultation: Shortness of breath
Medical History
-
History of Present Illness:
Primary lining closer. Dr Marcel Bingham
73-year-old male with a history of atrial fibrillation, A-fib ablation in 2021 recurrence of A-fib post ablation who is maintained on flecainide and Eliquis and was having paroxysmal atrial fibrillation. Patient implantable loop that was explanted
and then new loop was implanted in January. Patient was recently admitted with fevers and was noted to have inflamed pocket with pus and dehiscence. Device was explanted patient treated with antibiotics. He was discharged on 03/07/2024. Patient
states that he has had a cough which is nonproductive he is also had fever and chills this morning had temperature of 103 and had some associated shortness of breath which brought him to the ER. Chest CT suggesting bilateral pneumonia. There was
concern that patient had CHF on admission and by report had JVD. He has since received diuretic. Currently on O2 and after some diuresis patient says his breathing is feeling better. No complaints of chest pain. He has been in sinus rhythm.
Patient is being admitted by the hospitalist with additional consultation by ID
Past medical history
Paroxysmal atrial fibrillation
Afibrillation 2021 at [facility]
Hypertension
Hypercholesterolemia
epl-oemhjsd-uriejcagd diabetes
Inflected loop monitor with recent explant
First-degree AV block with
Social history. Epmninka-pv-jmf is Dr. Huong Elizalde. Patient's son is an ER physician currently working in urgent care
ECG reviewed 09/14/2022 sinus bradycardia heart rate 56 bpm first AV block with a SC interval of 330
ECG today sinus rhythm first-degree AV block SC interval 348
ECG 03/04/2024 A-fib heart rate [address] and T wave abnormality
Echocardiogram 03/05/2024 Limited imaging because of chest bandage normal left ventricular size and function ejection fraction 50 to 55% aortic valve poorly visualized no mitral regurgitation trace aortic regurgitation no significant tricuspid
regurgitation pulmonic valve not well-seen
Past Medical History
Past Medical History: Other (As noted above)
Social History
Tobacco: Non-Smoker
Family History
Family History: Early CAD (Negative) and Other
Allergies / Home Medications
Allergy/AdvReac Type Severity Reaction Status Date / Time
No Known Allergies Allergy Unverified 03/08/24 06:56
�Medication �Instructions �Recorded �Confirmed �Type
amlodipine 10 mg tablet 10 mg PO DAILY Blood Pressure 03/04/24 03/08/24 History
apixaban 5 mg tablet (Eliquis) 5 mg PO BID Blood Clot 03/04/24 03/08/24 History
Prevention/Tx
ascorbic acid (vitamin C) 500 mg 500 mg PO DAILY Supplement 03/04/24 03/08/24 History
tablet (Vitamin C)
atorvastatin 20 mg tablet 20 mg PO HS High Cholesterol 03/04/24 03/08/24 History
calcium carbonate 500 mg PO DAILY Supplement 03/04/24 03/08/24 History
dapagliflozin propanediol 10 mg 10 mg PO DAILY Diabetes 03/04/24 03/08/24 History
tablet (Farxiga)
enalapril maleate 20 mg tablet 20 mg PO DAILY Blood Pressure 03/04/24 03/08/24 History
glucosamine sulfate 500 mg tablet 500 mg PO DAILY Supplement 03/04/24 03/08/24 History
(Glucosamine)
metoprolol succinate 100 mg 100 mg PO DAILY Heart Failure 03/04/24 03/08/24 History
tablet,extended release 24 hr
omega 5-bai-zvq-fish oil 1,000 mg 1 cap PO DAILY High Cholesterol 03/04/24 03/08/24 History
(120 mg-180 mg) capsule (Fish Oil)
potassium chloride 20 mEq 20 meq PO Q48H Electrolyte 03/04/24 03/08/24 History
tablet,extended Repletion
release(part/cryst) (Klor-Con M)
tamsulosin 0.4 mg capsule 0.4 mg PO HS Urinary Issue 03/04/24 03/08/24 History
therapeutic multivitamin 1 tab PO DAILY Supplement 03/04/24 03/08/24 History
turmeric 400 mg capsule 400 mg PO DAILY Supplement 03/04/24 03/08/24 History
vitamins A,C,W-joue-hojooe 4,296 1 cap PO BID Supplement 03/04/24 03/08/24 History
mcg-226 mg-90 mg capsule
(PreserVision AREDS)
cephalexin 500 mg capsule 500 mg PO Q6H Infection 03/08/24 03/08/24 History
Review of Systems
-
All other systems: Negative unless noted
Physical Exam
Vital Signs
Temp Pulse Resp BP Pulse Ox
100.3 F 74 25 135/62 91
03/08/24 12:16 03/08/24 11:30 03/08/24 11:30 03/08/24 11:00 03/08/24 11:30
Lab Results
03/08/24 07:55
03/08/24 07:55
Troponin I 0.014 ng/ml 03/08/24 07:55
Fbr-I-Iwkqxxhkhem Pept 1830 pg/ml 03/08/24 07:55
Physical Exam
General: Well Developed, Well Nourished and No Apparent Distress
HEENT: Normocephalic and Moist Mucous Membranes
Respiratory: Clear and Other (Few fine crackles at bases no wheezes or rhonchi)
Cardiac: Regular Rhythm (No murmur rub or gallop)
GI: Soft, Non Tender and Non Distended
Musculoskeletal: No Clubbing, No Cyanosis and No Edema
Skin: Warm
Neuro: Awake
Hematologic/Lymphatic: No Lymphadenopathy
Impression / Plan
-
Fever. Temp of 103 reported at home. Patient with fever and chills. Recent admission with infected loop monitor which is since been explanted. Site of explant looks fine. Chest CT with reported bilateral pneumonia.
-Antibiotics as directed by primary team and ID
-Blood cultures
-Continue treatment of suspected pneumonia as directed by primary team.
-Repeat echo
.
Shortness of breath. Chest CT suggest bilateral pneumonia. There is also a question of a component of acute HFpEF patient reported to have increased JVP BP on presentation currently does not appear to increase JVP but patient has been diuresed.
-Continue with diuretics that are already given and assess response
-Antibiotics for pneumonia as directed by primary team and ID
-Repeat echo
.
PAF.Patient with prior A-fib ablation in 2021 he has had recurrent A-fib since ablation and was maintained on flecainide patient had A-fib on presentation and was suspected to be flecainide failure. Patient now off flecainide and just maintained on
metoprolol in sinus rhythm with prolonged first-degree AV block and a SC interval of 348. Apparently there was some discussion regarding additional antiarrhythmic therapy on last admission which would include possible transition to sotalol.
-Continue with current therapy which includes metoprolol and monitor on telemetry
-Would address the acute issues noted above and would not change treatment for A-fib at this time. Patient can be reassessed by EP during this admission. Ultimately patient will be following with his primary lining closer and we can help to
coordinate outpatient plan at discharge
.
Loop monitor infection. Recent explant site looks fine
-Continue antibiotics and monitor site
Data Reviewed
-
Radiology: Report Reviewed by me
Ultrasound: Report Reviewed by me
Medical Tests (Nuc Med, Echo etc): Image Personally Visualized and interpreted
Labs: Labs Reviewed by me
[2024-03-08] MEDS: VIBRAMYCIN 100 MG PO ×2 (12:58→19:22)
[2024-03-08] MEDS: TYLENOL 650 MG PO (12:58)
--- NOTE | 2024-03-08 13:00 | PTCARENOTE ---
pt admitted to IMU AOx3, denies pain. Fever noted, obtaining PRN Tylenol. Crackles noted right LL. Pt on 5L via NC. abd soft NT. no edema noted, +PP b/L skin CDI.
[2024-03-08] MEDS: NOVOLOG FLEXPEN-LOW RESISTANCE SC (14:05)
[2024-03-08 14:13] LABS: Glucose - Point of Care 111 mg/dl (70-99)
[2024-03-08] MEDS: STERILE WATER FOR INJECTION 10 ML IV (15:06)
[2024-03-08] MEDS: ROCEPHIN 1000 MG IV (15:06)
[2024-03-08] MEDS: KCL 20 MEQ PO (15:06)
--- NOTE | 2024-03-08 16:47 | CM ---
Patient readmitted with Dx Acute hypoxic respiratory failure due to B/L PNA, Paroxysmal atrial fibrillation. O2 7L. Receiving IV Abx. PT Eval pending.
Spoke with patient's Tashia;
the patient resides with his in a 2 story house with 4 MARIA A.
The patient has been independent in ADLs and ambulation, sometimes using his SPC.
DME - CPAP, SPC
No prior VN or SNF.
PCP - Corky Bose
Pharmacy - [facility], [place]
Per Cardiology notes 03/08: Social history. Hdbymrxz-au-ozg is Dr. Huong Elizalde. Patient's son is an ER physician currently working in urgent care
Plan watch for home O2 needs.
Plan follow up after seen by PT/OT.
[2024-03-08 17:11] LABS: Glucose - Point of Care 199 mg/dl (70-99)
[2024-03-08] MEDS: NOVOLOG FLEXPEN-LOW RESISTANCE 1 UNITS SC (18:19)
[2024-03-08] MEDS: OCUVITE SOFTGEL 1 CAP PO (19:22)
[2024-03-08] MEDS: ELIQUIS 5 MG PO (19:22)
[2024-03-08] MEDS: MAALOX 30 ML PO (20:49)
[2024-03-08] MEDS: LIPITOR 20 MG PO (21:14)
[2024-03-08] MEDS: FLOMAX 0.4 MG PO (21:14)
[2024-03-08 21:46] LABS: Glucose - Point of Care 112 mg/dl (70-99)
--- NOTE | 2024-03-08 22:09 | PTCARENOTE ---
Pt AAOx3, assessment as documented. Pt c/o heartburn, stat maalox given per LEGAL EXECUTIVE ASSISTANT order. Denies pain, VSS. Pt agreeable to wear CPAP HS, pt had one episode of desat to 87%, CPAP readjusted by RT with improvement.
[2024-03-09] VITALS (11 sets, daily range): BP systolic 111–149; BP diastolic 63–85; PULSE 77; BMI 28.0
[2024-03-09 06:05] LABS: Hematocrit 33.8 % (39.0-52.0); Hemoglobin 11.9 g/dL (13.0-18.0); Mean Corp Hgb Conc. 35.2 g/dL (33.0-37.0); Mean Corpuscular Hgb 31.5 pg (27.0-31.0); Mean Corpuscular Volume 89.4 fL (80.0-94.0); Mean Platelet Volume 9.5 fL (7.4-10.4); Platelet Count 163 10^3/uL (130-400); Red Blood Cell Count 3.78 10^6/uL (4.70-6.10); Red Cell Dist. Width 13.4 % (11.5-14.5); White Blood Cell Count 6.7 10^3/uL (4.8-10.8)
[2024-03-09 06:27] LABS: Blood Urea Nitrogen 21 mg/dl (9-20); Calcium 8.4 mg/dl (8.4-10.2); Carbon Dioxide 30 mmol/L (22-30); Chloride 98 mmol/L (98-107); Estimated Creatinine Clearance 87 ml/min; Glucose 105 mg/dl (70-99); Potassium 3.2 mmol/L (3.5-5.1); Sodium 138 mmol/L (135-145); eGFR > 60.00
--- NOTE | 2024-03-09 07:48 | W.PN.ID1 ---
Date of Service
Date of Service: March 09, 2024
Today's Communication
D/C abx.
Assessment / Plan
# Shortness of breath
- improved
# Bilateral pulmonary infiltrates
- suspect CHF over PNA
# Fever
-Afebrile overnight
# CHF (pBNP = 1800)
Paroxysmal A-fib
HTN
DM
Recommendations:
Although radiology reads the x-ray as pneumonia, I suspect findings are secondary to congestive heart failure, especially in the context of an elevated proBNP.
Procalcitonin noted to be negative.
Given above findings, discontinue further antibiotics.
Follow temperature curve.
Monitor white count.
����������������������������������������������������������
Chief Complaint
-: Fever and Pneumonia
Subjective / Review of Systems
Patient seen and examined. Overall feels somewhat improved. Slight cough reported. No sputum.
Review of Systems: No Fever
Vital Signs / Physical Exam
Vital Signs
Vital Signs
Temp Pulse Resp BP Pulse Ox
98.6 F 66 20 140/63 95
03/09/24 07:00 03/09/24 05:00 03/09/24 05:00 03/09/24 04:00 03/09/24 05:00
Physical Exam
Constitutional: No Acute Distress, Comfortable and Non-toxic
Eyes: Sclera Anicteric
Cardiovascular: S1/S2; Negative S3/S4
Pulmonary: Coarse and Non Labored; Negative Wheezes or Rales
Gastrointestinal: Soft and Non Tender
Neurological: Awake and Alert
Psychological: Calm
Objective Data
Lab Data
Lab Results
03/09/24 05:57
03/09/24 05:57
Estimated Creat Clear 87 ml/min 03/09/24 05:57
Lactic Acid 1.0 mmol/L (0.7-2.0) 03/08/24 11:34
Total Bilirubin 2.2 mg/dl (0.2-1.3) H D 03/08/24 07:55
AST 45 U/L (17-59) 03/08/24 07:55
ALT 45 U/L (0-50) 03/08/24 07:55
Alkaline Phosphatase 76 U/L (38-126) 03/08/24 07:55
Most recent labs reviewed.
Micro Results:
03/08/24 14:04 Streptococcus pneumoniae Antigen (M - Final
Urine Negative for Streptococcus pneumoniae antigen.
A negative result does not exclude infection with
Streptococcus pneumoniae. Clinical correlation is
recommended.
03/08/24 14:03 Nasal Screen MRSA (PCR) - Final
Nose MRSA not detected - performed by PCR methodology.
03/08/24 14:04 Legionella Urinary Antigen - Final
Urine Negative for Legionella pneumophila Serogroup 1 antigen.
A negative result does not rule out the possiblity of
Legionella infection due to other serogroups or species of
Legionella. Clinical correlation is recommended.
03/08/24 07:55 Influenza Types A & B (ALYSSA) - Final
Nasal Swab Negative for Influenza A & B, NAAT
Negative results must be combined with clinical observations
and patient history.
Nucleic Acid Amplification test (NAAT)performed on the
[employer] platform.
03/08/24 07:55 Blood Culture - Pending
Blood/Venous
Imaging :
03/08/2024 CXR (2 view): Bilateral perihilar airspace opacities (right greater than left) suspicious for multifocal pneumonia. Film personally reviewed, and airspace opacities/infiltrates appear to be somewhat dependent in nature.
03/08/2024 CT chest with contrast: Patchy airspace opacities within the bilateral lungs involving all lobes consistent with multifocal pneumonia. Again, film personally reviewed and airspace opacities/infiltrates appear to be dependent in the lobes
where present.
--- NOTE | 2024-03-09 08:10 | W.PN.HOSP.TC ---
Today's Communication/Plan
-
see bold
Assessment / Plan
Assessment / Plan
Gen: NAD, AAOx3.
Eyes: EOMI, PERRLA, no scleral icterus.
Neck: supple.
CV: remains RRR, +S1/S2, no m/r/g.
Resp: faint-mild rales in the bases.
Abd: +BS, soft, NT, ND
Skin: No rashes. No LE edema.
Neuro: CN 2-12 intact, non-focal.
Psych: Normal mood and affect.
CT chest with IV contrast: Bilateral multifocal pneumonia with trace parapneumonic effusions.
Acute hypoxic respiratory failure:
-with rales in the bases and proBNP 1830 pt was given 40mg IV Lasix on admission, I/Os -2450cc
-The pt was on abx for first 24 hours of admission. At this time ID does not feel pt has bacterial PNA, rather acute on chronic HFpEF.
-cont BB
-no fever while hospitalized (highest temp 100.3 F, so less than 100.4 F) but temp 103 BLOCK STACKER
-follow BCxs
-COVID/Flu NEG
-Legionella and strep urinary Ags NEG
-ID/pulm/cards following
-cont NC O2, wean as tolerated (currently on 5L NC O2, was on CPAP O/N and 6L NC O2 on admission yesterday)
-IS, ambulate pt
-will discuss further diuresis with cardiology
Other problems:
Paroxysmal atrial fibrillation: h/o ablation in 2021. Continue Toprol-XL/Eliquis.
Acute on chronic HFpEF: see above
DM2: a1c 6.3%. SSI/accuchecks/diabetic diet. cont Farxiga.
Essential hypertension: Continue Norvasc/enalapril/Toprol-XL
Discussed with cardiology/pulm/ID
FULL/Eliquis/IMU
Total time spent on today's encounter was 50 minutes which included time spent in counseling the patient/family regarding diagnosis and treatment plan as listed above, goals of care, and symptom management. Case was discussed with nursing staff,
specialists, and care coordinators/case management. All labs and imaging personally reviewed by me. Remainder the time spent in detailed review of previous records, lab data, imaging, and other medical provider documentation.
Anticipated Discharge: > 48 hours
Subjective/Interval History
-
Date of Service: March 09, 2024
Denies chest pain or shortness of breath.
Objective Data
-
Labs:
Laboratory Results
03/09/24
05:57
WBC 6.7
Hgb 11.9 L
Hct 33.8 L
Plt Count 163
Sodium 138
Potassium 3.2 L
Chloride 98
Carbon Dioxide 30
BUN 21 H
Creatinine 0.7
Glucose 105 H
Calcium 8.4
Vital Signs:
Vital Signs
Temp Pulse Resp BP Pulse Ox
98.6 F 66 20 140/63 95
03/09/24 07:00 03/09/24 05:00 03/09/24 05:00 03/09/24 04:00 03/09/24 05:00
I&O
03/08/24 03/09/24 03/10/24
06:59 06:59 06:59
Output Total 2450 / 2450
Balance -2450 / -2450
[2024-03-09 08:25] LABS: Glucose - Point of Care 96 mg/dl (70-99)
[2024-03-09] MEDS: KCL 40 MEQ PO ×2 (08:46→11:14)
[2024-03-09] MEDS: NOVOLOG FLEXPEN-LOW RESISTANCE SC ×2 (08:46→18:29)
[2024-03-09] MEDS: OSCAL CAL 500 500 MG PO (08:46)
[2024-03-09] MEDS: NORVASC 10 MG PO (08:46)
[2024-03-09] MEDS: ELIQUIS 5 MG PO ×2 (08:46→19:29)
[2024-03-09] MEDS: VITAMIN C 500 MG PO (08:46)
[2024-03-09] MEDS: TOPROL XL 100 MG PO (08:50)
[2024-03-09] MEDS: VASOTEC 20 MG PO (08:50)
[2024-03-09] MEDS: THERAGRAN 1 TABLET PO (08:50)
[2024-03-09] MEDS: FARXIGA 10 MG PO (08:50)
[2024-03-09] MEDS: OCUVITE SOFTGEL 1 CAP PO ×2 (08:51→19:29)
--- NOTE | 2024-03-09 09:47 | W.PN.PUL3 ---
Today's Communication / Plan
-
Diuresis
Aldactone
Replete K>4, Mg>2
Encourage incentive spirometer use
Antibiotics stopped (procalcitonin negative) -continue to monitor for fever, trend WBC
Check ambulatory pulse oximeter prior to discharge
Assessment
-
Assessment: 73-year-old male with a past medical history of A-fib on Eliquis, chronic HFpEF, hypertension + DM type II who presents with worsening SOB, dry cough + fevers. Patient recently hospitalized from due to sepsis from infected
implantable loop recorder site infection s/p explantation on 03/05/2024. ID saw the patient and he was treated with vancomycin/Zosyn. He was discharged on 03/26 with Keflex. After he returned home he had a fever to 100.8 �F. His fevers continued
despite taking Bactrim which she had at home. He also developed progressive shortness of breath. In the ER he was afebrile to 97.6 �F, pulse rate 72, breathing at 24 breaths/min, BP 129/69, and SpO2 80% on room air, which improved to 90% on 6
L/min nasal cannula. Labs showed normal WBC at 10.1, Hb 13.2, T. bili elevated 2.2, proBNP elevated 1830, troponin 0.014, and COVID-19 antigen negative. Blood cultures were collected. CXR showed bilateral perihilar opacities suspicious for
multifocal pneumonia, which was confirmed on CT chest showing bilateral upper lobe/lower lobe air bronchograms with patchy consolidation and small pleural effusions. Patient given Lasix in the ER (40 mg IVP X1) + Zosyn, and admitted to the
hospitalist service. ID + cardiology consulted, and now pulmonary consulted for additional management/recommendations.
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
Impression:
#Acute decompensated heart failure/acute HFpEF
#Suspected multifocal pneumonia with small bilateral pleural effusions
#Acute respiratory failure with hypoxia on supplemental oxygen due to above
#Recent implantable loop recorder site infection s/p explantation on 03/05/2024
#History of A-fib s/p ablation (2021) with recurrence maintained on flecainide + Eliquis
#DM type II
#Abnormal urinalysis with trace leukocyte esterase and few urine bacteria � patiently is currently asymptomatic with no dysuria, urinary discharge, lower abdominal pain or fever/chills
Plan:
- Given that procalcitonin is negative at 0.18; s/p rocephin + doxy and 1 dose of zosyn
- MRSA swab negative
- Check sputum Cx if pt can provide a decent sample
- Follow up blood Cx (collected 03/08/2024)
- Legionella/strep pneumoniae urine antigens are both negative
- Diuresis as per cardiology
- trend daily weight, UOP and I/O
- Trend sCr and re-assess volume status daily
- Continue aldactone
- Maintain SpO2 >90-94% with supplemental O2 and wean down as tolerated
- Incentive spirometer encouraged
- PT/OT
- Replete electrolytes with K>4, Mg>2
- Maintain euglycemia with goal BG >100 and <180
- prn nebulized bronchodilators - pt not currently bronchospastic
- DVT ppx: Eliquis
Pulmonary service will continue to follow along.
Data:
CT Chest with IV contrast 03/08/2024: Bilateral multifocal pneumonia with trace parapneumonic effusions.
Total time spent today was 35 minutes for this encounter. Time includes reviewing laboratory test/imaging results, reviewing pertinent medical records, obtaining and reviewing medical history, performing an appropriate exam, ordering medications,
tests and procedures. Time also includes documentation of this encounter, coordinating patient care and communicating with other healthcare professionals. Total time does not include separately billed tests performed on this date of service.
Subjective Data
-
Date of Service:
Date of Service: March 09, 2024
Chief Complaint: Pulmonary Follow Up and Dyspnea Follow Up
Subjective:
Patient seen and evaluated today at bedside. Patient's , Tashia, at bedside. All questions were answered. Patient currently saturating 97% on 3 L/min nasal cannula, heart rate 66 and BP 125/69. Patient says he feels well. He is using the
incentive spirometer throughout the day. He denies chest pain, MCKAY, abdominal pain, nausea, fevers chills.
Review of Systems
General: Other (Negative unless mentioned above)
Objective Data
Data Reviewed
Vital Signs / I&O / Oxygen:
Vital Signs
Temp Pulse Resp BP Pulse Ox
98.6 F 67 19 140/63 94
03/09/24 07:00 03/09/24 08:00 03/09/24 08:00 03/09/24 04:00 03/09/24 08:00
Intake and Output
03/08/24 03/09/24 03/10/24
06:59 06:59 06:59
Output Total 2450 / 2450
Balance -2450 / -2450
SaO2 94
Nasal Cannula flow liters per 6
minute
Physical Exam
General: Respiratory Distress (negative), Comfortable, Chills (negative) and Sweats (negative)
HEENT: Normocephalic and Anicteric
Cardiovascular: S1-S2 and Peripheral Edema (negative)
Respiratory: Wheeze (negative), Crackles (Bilateral), Rhonchi (negative) and Non-Labored Respirations
GI: Soft, Non Distended, Non Tender and Normal Bowel Sounds
Neurology: AO x 3 and Tremors (negative)
Skin: Warm, Dry and Jaundice (negative)
Labs/Micro/Reports
Lab Data
03/09/24 05:57
03/09/24 05:57
Microbiology
03/08/24 07:55 Blood/Venous Blood Culture - Preliminary
No Growth in 24 hours- Final report to follow
03/08/24 14:04 Urine Streptococcus pneumoniae Antigen (M - Final
Negative for Streptococcus pneumoniae antigen.
A negative result does not exclude infection with
Streptococcus pneumoniae. Clinical correlation is
recommended.
03/08/24 14:03 Nose Nasal Screen MRSA (PCR) - Final
MRSA not detected - performed by PCR methodology.
03/08/24 14:04 Urine Legionella Urinary Antigen - Final
Negative for Legionella pneumophila Serogroup 1 antigen.
A negative result does not rule out the possiblity of
Legionella infection due to other serogroups or species of
Legionella. Clinical correlation is recommended.
03/08/24 07:55 Nasal Swab Influenza Types A & B (ALYSSA) - Final
Negative for Influenza A & B, NAAT
Negative results must be combined with clinical observations
and patient history.
Nucleic Acid Amplification test (NAAT)performed on the
[employer] platform.
[2024-03-09] MEDS: ALDACTONE 25 MG PO (11:15)
[2024-03-09] MEDS: LASIX 40 MG IV ×2 (11:16→16:21)
[2024-03-09] MEDS: FLUSH (NSS) 1 FLUSH IV ×2 (11:17→16:23)
[2024-03-09 12:32] LABS: Glucose - Point of Care 157 mg/dl (70-99)
--- NOTE | 2024-03-09 13:45 | W.PN.CD ---
Today's Communication / Plan
-
IV diuresis
Add Aldactone
HF education
Echo last week was too limited => repeat Monday
Impression / Plan
-
Acute on chronic HFpEF
- This is his third decompensation in the last so year or so
- HF education
- IV diuresis Lasix 40 BID
- Add Aldactone
- Continue Farxiga
- Consider moving AZUL-I to ARNI
- I favor a repeat CXR/pBNP closer to discharge
- At home I favor a daily loop diuretic for now
- Will need BMP 2 and 4 weeks and q 3months to follow Cr/K+/HCO2
Fever
- Defer to medicine/ID
- Loop site looks fine
- ATB have been stopped
Paroxysmal AFib
- Flecainide stopped last admit
- Prior AFib ablation 2021, known recurrence since
- For now just a beta rossana
- If burden of AFib warrants can add AAD (at age 73 with HFpEF amio, dofetilide, or sotalol are common AAD) or proceed to a second ablation
- Continue oral anticoagulation
Loop monitor infection
- Explant with debridement on 03/05/2024
Subjective:
This episode reminds him of his 2 other acute heart failure exacerbations
Physical Exam
Vital Signs/Labs
Vital Signs
Temp Pulse Resp BP Pulse Ox
98.0 F 70 26 142/79 98
03/09/24 11:00 03/09/24 11:00 03/09/24 11:00 03/09/24 10:00 03/09/24 13:05
03/08/24 03/09/24 03/10/24
06:59 06:59 06:59
Actual Weight 81.1 kg
03/09/24 05:57
03/09/24 05:57
03/08/24
07:55
Eyr-K-Czfblssnkwh Pept 1830
LAB Results
03/08/24
07:55
Troponin I 0.014
Physical Exam
Constitutional: No acute distress
EENT: Anicteric
Cardiovascular: Rhythm & rate is regular and Pedal edema is absent
Respiratory: Respiratory effort normal, Crackles Absent and Crackles Present (at bases)
GI: Soft and Distention absent
Neuro/Psych: AO x 3
Data Reviewed
-
Date of Service: March 09, 2024
[2024-03-09] MEDS: NOVOLOG FLEXPEN-LOW RESISTANCE 1 UNITS SC (14:22)
--- NOTE | 2024-03-09 16:30 | PTCARENOTE ---
Patient O2 weaned down to 3L today. Pulse ox 94%-97%, patient denies any shortness of breath. Occasional dry cough noted. Using IS faithfully and ambulating in room. Patient out of bed to chair for most of the day. Breath sounds diminished with
some crackles at bases bilaterally. Patient was ordered BID IV lasix today with good urine output. Using urinal independently. Appetite good. Vitals stable, afebrile.
[2024-03-09 16:51] LABS: Glucose - Point of Care 99 mg/dl (70-99)
[2024-03-09 18:06] LABS: Magnesium 2.5 mg/dl (1.6-2.3)
[2024-03-09] MEDS: LIPITOR 20 MG PO (21:25)
[2024-03-09] MEDS: FLOMAX 0.4 MG PO (21:25)
--- NOTE | 2024-03-09 22:37 | PTCARENOTE ---
Pt oriented, resting comfortably in bed. Tolerated O2 wean to 1L with SaO2 maintaining 93-96%. Pt diligently performing breathing exercises using IS, denies complaints at this time. Agreeable to wear CPAP HS. Maintains SR with 1st degree AV block on
nurse monitoring, VSS. Pt performed hygiene care with assistance of son at bedside. Call tobin within reach.
[2024-03-10] VITALS (11 sets, daily range): BP systolic 123–156; BP diastolic 63–75; PULSE 75; BMI 27.6
[2024-03-10 06:27] LABS: Hematocrit 35.9 % (39.0-52.0); Hemoglobin 12.7 g/dL (13.0-18.0); Mean Corp Hgb Conc. 35.4 g/dL (33.0-37.0); Mean Corpuscular Hgb 31.5 pg (27.0-31.0); Mean Corpuscular Volume 89.1 fL (80.0-94.0); Mean Platelet Volume 9.3 fL (7.4-10.4); Platelet Count 211 10^3/uL (130-400); Red Blood Cell Count 4.03 10^6/uL (4.70-6.10); Red Cell Dist. Width 13.3 % (11.5-14.5); White Blood Cell Count 4.9 10^3/uL (4.8-10.8)
[2024-03-10 06:47] LABS: Blood Urea Nitrogen 21 mg/dl (9-20); Calcium 8.7 mg/dl (8.4-10.2); Carbon Dioxide 27 mmol/L (22-30); Chloride 101 mmol/L (98-107); Estimated Creatinine Clearance 101 ml/min; Glucose 114 mg/dl (70-99); Potassium 3.9 mmol/L (3.5-5.1); Sodium 140 mmol/L (135-145); eGFR > 60.00
[2024-03-10 07:57] LABS: Glucose - Point of Care 128 mg/dl (70-99)
--- NOTE | 2024-03-10 08:12 | W.PN.HOSP.TC ---
Today's Communication/Plan
-
see bold
Assessment / Plan
Assessment / Plan
Gen: NAD, AAOx3.
Eyes: EOMI, PERRLA, no scleral icterus.
Neck: supple.
CV: continues to remain RRR, +S1/S2, no m/r/g.
Resp: trace rales in the L base.
Abd: +BS, soft, NT, ND
Skin: No rashes. No LE edema.
Neuro: remains CN 2-12 intact, non-focal.
Psych: Normal mood and affect.
CT chest with IV contrast: Bilateral multifocal pneumonia with trace parapneumonic effusions.
Acute hypoxic respiratory failure due to acute on chronic HFpEF:
-with rales in the bases and proBNP 1830 pt was given 40mg IV Lasix on admission, followed by Lasix 40mg IV Q12H
-Note, the pt was on abx for first 24 hours of admission. On admission the patient's imaging was read as multifocal pneumonia. In retrospect the findings on imaging likely represent acute pulmonary edema. Patient's procalcitonin was negative.
Antibiotics were stopped. Myself and infectious disease agree that there is no bacterial pneumonia at this time. Also, the pt has not had a fever while hospitalized (highest temp 100.3 F, so less than 100.4 F) but temp 103 COUNTERSINKER. BCx NGTD. COVID/Flu
NEG. Legionella and strep urinary Ags NEG.
-cont BB/Aldactone
-was on 6L NC O2, now weaned to RA (94% on RA this AM on my read)
-ID/pulm/cards following
-IS, ambulate pt
-echo tomorrow
Other problems:
Paroxysmal atrial fibrillation: h/o ablation in 2021. Continue Toprol-XL/Eliquis.
DM2: a1c 6.3%. SSI/accuchecks/diabetic diet. cont Farxiga.
Essential hypertension: Continue Norvasc/enalapril/Toprol-XL/aldactone
FULL/Eliquis
Anticipated Discharge: Within 24 hours
Subjective/Interval History
-
Date of Service: March 10, 2024
No new complaints.
Objective Data
-
Labs:
Laboratory Results
03/10/24
06:11
WBC 4.9
Hgb 12.7 L
Hct 35.9 L
Plt Count 211 D
Sodium 140
Potassium 3.9
Chloride 101
Carbon Dioxide 27
BUN 21 H
Creatinine 0.6 L
Glucose 114 H
Calcium 8.7
Vital Signs:
Vital Signs
Temp Pulse Resp BP Pulse Ox
98.0 F 64 20 138/74 95
03/10/24 03:39 03/10/24 06:07 03/10/24 06:07 03/10/24 06:07 03/10/24 06:00
I&O
03/09/24 03/10/24 03/11/24
06:59 06:59 06:59
Intake Total 1979
Output Total 2450 / 2450 3125 / 3125
Balance -2450 / -2450 -1145 / -1145
[2024-03-10] MEDS: OCUVITE SOFTGEL 1 CAP PO ×2 (08:22→19:38)
[2024-03-10] MEDS: NOVOLOG FLEXPEN-LOW RESISTANCE SC ×2 (08:22→16:44)
[2024-03-10] MEDS: VASOTEC 20 MG PO (08:22)
[2024-03-10] MEDS: THERAGRAN 1 TABLET PO (08:23)
[2024-03-10] MEDS: TOPROL XL 100 MG PO (08:23)
[2024-03-10] MEDS: NORVASC 10 MG PO (08:23)
[2024-03-10] MEDS: ELIQUIS 5 MG PO ×2 (08:23→19:38)
[2024-03-10] MEDS: FARXIGA 10 MG PO (08:23)
[2024-03-10] MEDS: ALDACTONE 25 MG PO (08:23)
[2024-03-10] MEDS: VITAMIN C 500 MG PO (08:23)
[2024-03-10] MEDS: LASIX 40 MG IV ×2 (08:23→16:39)
[2024-03-10] MEDS: OSCAL CAL 500 500 MG PO (08:24)
--- NOTE | 2024-03-10 09:28 | PTCARENOTE ---
Pt rec'd from date night caregiver RN, AOx3 very pleasant and cooperative with cares. Medically informed, independently using IS and other breathing techniques. Weaned to room air from 1L, sat maintaining 93-95% this am. Meds and assessment as documented,
lungs CTA/dim, independently transfered to chair for breakfast. Plan discussed with pt and Dr. Snyder, will add fluid restr to diet order of 40 oz per day, education provided. Pt in agreements. Referenced CHF packet for additional info. Pt reported no
BM in 4 days, usual pattern is EOD, bowel reg added per Dr. Snyder. Pt written for tele level, portable monitor placed. Will keep in IMU per family/MD request. Pt updated and in agreement with plans, call tobin in reach, no other needs at this time.
--- NOTE | 2024-03-10 10:40 | W.PN.ID1 ---
Date of Service
Date of Service: March 10, 2024
Today's Communication
Observe off antibiotics.
Assessment / Plan
# Shortness of breath
- improved
# Bilateral pulmonary infiltrates
- suspect CHF over PNA
# Fever
-Afebrile
# CHF (pBNP = 1800)
Paroxysmal A-fib
HTN
DM
Recommendations:
Although radiology reads the x-ray as pneumonia, I suspect findings are secondary to congestive heart failure, especially in the context of an elevated proBNP.
Procalcitonin noted to be negative.
Antibiotics previously discontinued.
Follow temperature curve.
Monitor white count.
����������������������������������������������������������
Chief Complaint
-: Fever and Pneumonia
Subjective / Review of Systems
Review of Systems: No Fever
Vital Signs / Physical Exam
Vital Signs
Vital Signs
Temp Pulse Resp BP Pulse Ox
97.8 F 72 20 156/75 93
03/10/24 07:17 03/10/24 08:22 03/10/24 06:07 03/10/24 08:22 03/10/24 09:28
Physical Exam
Constitutional: No Acute Distress, Comfortable and Non-toxic
Eyes: Sclera Anicteric
Cardiovascular: S1/S2; Negative S3/S4
Pulmonary: Coarse and Non Labored; Negative Wheezes or Rales
Gastrointestinal: Soft and Non Tender
Neurological: Awake and Alert
Psychological: Calm
Objective Data
Lab Data
Lab Results
03/10/24 06:11
03/10/24 06:11
Estimated Creat Clear 101 ml/min 03/10/24 06:11
Lactic Acid 1.0 mmol/L (0.7-2.0) 03/08/24 11:34
Total Bilirubin 2.2 mg/dl (0.2-1.3) H D 03/08/24 07:55
AST 45 U/L (17-59) 03/08/24 07:55
ALT 45 U/L (0-50) 03/08/24 07:55
Alkaline Phosphatase 76 U/L (38-126) 03/08/24 07:55
Most recent labs reviewed.
Micro Results:
03/08/24 07:55 Blood Culture - Preliminary
Blood/Venous No Growth in 48 hours- Final report to follow
03/08/24 14:04 Streptococcus pneumoniae Antigen (M - Final
Urine Negative for Streptococcus pneumoniae antigen.
A negative result does not exclude infection with
Streptococcus pneumoniae. Clinical correlation is
recommended.
03/08/24 14:03 Nasal Screen MRSA (PCR) - Final
Nose MRSA not detected - performed by PCR methodology.
03/08/24 14:04 Legionella Urinary Antigen - Final
Urine Negative for Legionella pneumophila Serogroup 1 antigen.
A negative result does not rule out the possiblity of
Legionella infection due to other serogroups or species of
Legionella. Clinical correlation is recommended.
03/08/24 07:55 Influenza Types A & B (ALYSSA) - Final
Nasal Swab Negative for Influenza A & B, NAAT
Negative results must be combined with clinical observations
and patient history.
Nucleic Acid Amplification test (NAAT)performed on the
[employer] platform.
Imaging :
03/08/2024 CXR (2 view): Bilateral perihilar airspace opacities (right greater than left) suspicious for multifocal pneumonia. Film personally reviewed, and airspace opacities/infiltrates appear to be somewhat dependent in nature.
03/08/2024 CT chest with contrast: Patchy airspace opacities within the bilateral lungs involving all lobes consistent with multifocal pneumonia. Again, film personally reviewed and airspace opacities/infiltrates appear to be dependent in the lobes
where present.
--- NOTE | 2024-03-10 11:00 | PTCARENOTE ---
Pt reported he moved bowels about an hour ago, declines Colace at this time.
--- NOTE | 2024-03-10 11:02 | W.PN.PUL3 ---
Today's Communication / Plan
-
Diuresis
Aldactone
Replete K>4, Mg>2
Encourage incentive spirometer use
Antibiotics stopped (procalcitonin negative) -continue to monitor for fever, trend WBC
Patient is doing remarkably well s/p diuresis. Currently on room air breathing comfortably. No additional recommendations at this time. Pulmonary service will now sign off. Please reconsult if there are any additional questions/concerns, or if
patient's respiratory status deteriorates.
Assessment
-
Assessment: 73-year-old male with a past medical history of A-fib on Eliquis, chronic HFpEF, hypertension + DM type II who presents with worsening SOB, dry cough + fevers. Patient recently hospitalized from due to sepsis from infected
implantable loop recorder site infection s/p explantation on 03/05/2024. ID saw the patient and he was treated with vancomycin/Zosyn. He was discharged on 03/26 with Keflex. After he returned home he had a fever to 100.8 �F. His fevers continued
despite taking Bactrim which she had at home. He also developed progressive shortness of breath. In the ER he was afebrile to 97.6 �F, pulse rate 72, breathing at 24 breaths/min, BP 129/69, and SpO2 80% on room air, which improved to 90% on 6
L/min nasal cannula. Labs showed normal WBC at 10.1, Hb 13.2, T. bili elevated 2.2, proBNP elevated 1830, troponin 0.014, and COVID-19 antigen negative. Blood cultures were collected. CXR showed bilateral perihilar opacities suspicious for
multifocal pneumonia, which was confirmed on CT chest showing bilateral upper lobe/lower lobe air bronchograms with patchy consolidation and small pleural effusions. Patient given Lasix in the ER (40 mg IVP X1) + Zosyn, and admitted to the
hospitalist service. ID + cardiology consulted, and now pulmonary consulted for additional management/recommendations.
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
Impression:
#Acute decompensated heart failure/acute HFpEF
#Suspected multifocal pneumonia with small bilateral pleural effusions
#Acute respiratory failure with hypoxia on supplemental oxygen due to above
#Recent implantable loop recorder site infection s/p explantation on 03/05/2024
#History of A-fib s/p ablation (2021) with recurrence maintained on flecainide + Eliquis
#DM type II
#Abnormal urinalysis with trace leukocyte esterase and few urine bacteria � patiently is currently asymptomatic with no dysuria, urinary discharge, lower abdominal pain or fever/chills
Plan:
- Given that procalcitonin is negative at 0.18; s/p rocephin + doxy and 1 dose of zosyn
- MRSA swab negative
- Check sputum Cx if pt can provide a decent sample
- Follow up blood Cx (collected 03/08/2024)
- Legionella/strep pneumoniae urine antigens are both negative
- Diuresis as per cardiology
- trend daily weight, UOP and I/O
- Trend sCr and re-assess volume status daily
- Continue aldactone
- Maintain SpO2 >90-94%
- Incentive spirometer encouraged
- PT/OT
- Replete electrolytes with K>4, Mg>2
- Maintain euglycemia with goal BG >100 and <180
- prn nebulized bronchodilators - pt not currently bronchospastic
- DVT ppx: Eliquis
Patient is doing remarkably well s/p diuresis. Currently on room air breathing comfortably. No additional recommendations at this time. Pulmonary service will now sign off. Thank you for allowing us to be involved in the care of this patient.
Please reconsult if there are any additional questions/concerns, or if patient's respiratory status deteriorates.
Data:
CT Chest with IV contrast 03/08/2024: Bilateral multifocal pneumonia with trace parapneumonic effusions.
Total time spent today was 35 minutes for this encounter. Time includes reviewing laboratory test/imaging results, reviewing pertinent medical records, obtaining and reviewing medical history, performing an appropriate exam, ordering medications,
tests and procedures. Time also includes documentation of this encounter, coordinating patient care and communicating with other healthcare professionals. Total time does not include separately billed tests performed on this date of service.
Subjective Data
-
Date of Service:
Date of Service: March 10, 2024
Chief Complaint: Pulmonary Follow Up and Dyspnea Follow Up
Subjective:
Seen and evaluated today at bedside. He feels much better. Patient's daughter at bedside and I answered all of her questions. Patient currently on room air. He denies chest pain, headache, abdominal pain, fevers chills.
Review of Systems
General: Other (Negative unless mentioned above)
Objective Data
Data Reviewed
Vital Signs / I&O / Oxygen:
Vital Signs
Temp Pulse Resp BP Pulse Ox
98.0 F 68 18 138/75 96
03/10/24 19:06 03/10/24 19:06 03/10/24 19:06 03/10/24 19:06 03/10/24 19:06
Intake and Output
03/09/24 03/10/24 03/11/24
06:59 06:59 06:59
Intake Total 1979 / 1979 960 / 960
Output Total 2450 / 2450 3125 / 3125 700 / 700
Balance -2450 / -2450 -1145 / -1145 260 / 260
SaO2 96
Nasal Cannula flow liters per 2
minute
Physical Exam
General: Respiratory Distress (negative), Comfortable, Chills (negative) and Sweats (negative)
HEENT: Normocephalic and Anicteric
Cardiovascular: S1-S2 and Peripheral Edema (negative)
Respiratory: Clear, Wheeze (negative), Crackles (negative), Rhonchi (negative) and Non-Labored Respirations
GI: Soft, Non Distended, Non Tender and Normal Bowel Sounds
Neurology: AO x 3 and Tremors (negative)
Skin: Warm, Dry and Jaundice (negative)
Labs/Micro/Reports
Lab Data
03/10/24 06:11
03/10/24 06:11
Microbiology
03/08/24 07:55 Blood/Venous Blood Culture - Preliminary
No Growth in 48 hours- Final report to follow
03/08/24 14:04 Urine Streptococcus pneumoniae Antigen (M - Final
Negative for Streptococcus pneumoniae antigen.
A negative result does not exclude infection with
Streptococcus pneumoniae. Clinical correlation is
recommended.
03/08/24 14:03 Nose Nasal Screen MRSA (PCR) - Final
MRSA not detected - performed by PCR methodology.
03/08/24 14:04 Urine Legionella Urinary Antigen - Final
Negative for Legionella pneumophila Serogroup 1 antigen.
A negative result does not rule out the possiblity of
Legionella infection due to other serogroups or species of
Legionella. Clinical correlation is recommended.
03/08/24 07:55 Nasal Swab Influenza Types A & B (ALYSSA) - Final
Negative for Influenza A & B, NAAT
Negative results must be combined with clinical observations
and patient history.
Nucleic Acid Amplification test (NAAT)performed on the
[employer] platform.
--- NOTE | 2024-03-10 11:02 | W.PN.CD ---
Today's Communication / Plan
-
Continue IV diuresis
Added Aldactone
Ordered HF education
Echo last week was too limited => repeat Monday
Stop KCl
CXR/pBNP tomorrow
Impression / Plan
-
Acute on chronic HFpEF
- This is his third decompensation in the last so year or so
- HF education
- IV diuresis Lasix 40 BID
- weight down 1.2 kg from yesterday
- Continue the new Aldactonea and the old Farxiga
- Consider moving AZUL-I to ARNI (as outpatient)
- I favor a repeat CXR/pBNP closer to discharge => tomorrow
- At home I favor a daily loop diuretic for now
- Will need BMP 2 and 4 weeks and q 3months to follow Cr/K+/HCO2
- Stop KCl
Fever, resolved
- Defer to medicine/ID
- Loop site looks fine
- ATB have been stopped
Paroxysmal AFib
- Flecainide stopped last admit
- Prior AFib ablation 2021, known recurrence since
- For now just a beta rossana
- If burden of AFib warrants can add AAD (at age 73 with HFpEF amio, dofetilide, or sotalol are common AAD) or proceed to a second ablation
- Continue oral anticoagulation
Loop monitor infection
- Explant with debridement on 03/05/2024
Subjective:
This episode of HF reminds him of his 2 other acute heart failure exacerbations. He feels better. Has not used a loop diuretic in many months
Physical Exam
Vital Signs/Labs
Vital Signs
Temp Pulse Resp BP Pulse Ox
97.8 F 73 19 123/75 93
03/10/24 07:17 03/10/24 10:00 03/10/24 08:00 03/10/24 10:00 03/10/24 09:28
03/09/24 03/10/24 03/11/24
06:59 06:59 06:59
Actual Weight 81.1 kg 79.9 kg
03/10/24 06:11
03/10/24 06:11
Magnesium 2.5 mg/dl (1.6-2.3) H 03/09/24 05:57
03/08/24
07:55
Ozm-N-Bgrhnexduxs Pept 1830
LAB Results
03/08/24
07:55
Troponin I 0.014
Physical Exam
Constitutional: No acute distress
EENT: Anicteric
Cardiovascular: Rhythm & rate is regular, Systolic murmur absent and S1S2 is normal
Respiratory: Respiratory effort normal and Lungs clear to auscul.
GI: Soft and Distention absent
Neuro/Psych: AO x 3
Data Reviewed
-
Date of Service: March 10, 2024
[2024-03-10 12:00] LABS: Glucose - Point of Care 168 mg/dl (70-99)
[2024-03-10] MEDS: NOVOLOG FLEXPEN-LOW RESISTANCE 1 UNITS SC (12:13)
[2024-03-10 16:44] LABS: Glucose - Point of Care 107 mg/dl (70-99)
[2024-03-10] MEDS: LIPITOR 20 MG PO (21:02)
[2024-03-10] MEDS: FLOMAX 0.4 MG PO (21:02)
[2024-03-10 21:59] LABS: Glucose - Point of Care 112 mg/dl (70-99)
[2024-03-11 03:18] VITALS: BP 126/55
[2024-03-11 06:00] VITALS: BMI 26.9
[2024-03-11 08:04] LABS: Glucose - Point of Care 122 mg/dl (70-99)
[2024-03-11 08:25] VITALS: BP 139/67
--- NOTE | 2024-03-11 08:43 | W.PN.CD ---
Today's Communication / Plan
-
- Lasix 20 mg MWF, discussed daily weights and increase to daily if weight increases 3-5 lbs
- Will need BMP 2 and 4 weeks and q 3months to follow Cr/K+/HCO2
We will sign off please call with questions/concerns.
He will f/u with home outpt support group manager.
Impression / Plan
-
Acute on chronic HFpEF
- This is his third decompensation in the last so year or so
- HF education
- Stop IV diuresis, dry weight is 170-175 lbs, weight today Sept 9 170 lbs
- Continue the new Aldactonea and the old Farxiga
- Consider moving AZUL-I to ARNI (as outpatient)
- I favor a repeat CXR/pBNP closer to discharge => tomorrow
- Lasix 20 mg MWF, discussed daily weights and increase to daily if weight increases 3-5 lbs
- Will need BMP 2 and 4 weeks and q 3months to follow Cr/K+/HCO2
- Stop KCl
Fever, resolved
- Defer to medicine/ID
- Loop site looks fine
- ATB have been stopped
Paroxysmal AFib
- Flecainide stopped last admit
- Prior AFib ablation 2021, known recurrence since
- For now just a beta rossana
- If burden of AFib warrants can add AAD (at age 73 with HFpEF amio, dofetilide, or sotalol are common AAD) or proceed to a second ablation
- Continue oral anticoagulation
Loop monitor infection
- Explant with debridement on 03/05/2024
Subjective:
Feels well no new CV complaints
Physical Exam
Vital Signs/Labs
Vital Signs
Temp Pulse Resp BP Pulse Ox
97.8 F 67 16 139/67 92
03/11/24 08:25 03/11/24 08:25 03/11/24 08:25 03/11/24 08:25 03/11/24 08:25
03/10/24 03/11/24 03/12/24
06:59 06:59 06:59
Actual Weight 176 lb 2.389 oz 171 lb 4.8 oz
Magnesium 2.5 mg/dl (1.6-2.3) H 03/09/24 05:57
03/08/24
07:55
Hzy-H-Bqktucalbkv Pept 1830
Physical Exam
Constitutional: No acute distress and Comfortable
EENT: Anicteric
Cardiovascular: Rhythm & rate is regular and Pedal edema is absent
Respiratory: Respiratory effort normal and Lungs clear to auscul.
GI: Soft
Neuro/Psych: AO x 3
Data Reviewed
-
Date of Service: March 11, 2024
EKG: Tracing Personally Visualized and interpreted (sr)
Echo: Report Reviewed by me
Labs: Labs Reviewed by me
[2024-03-11] MEDS: NOVOLOG FLEXPEN-LOW RESISTANCE SC ×2 (08:55→13:11)
[2024-03-11] MEDS: FARXIGA 10 MG PO (09:20)
[2024-03-11] MEDS: OSCAL CAL 500 500 MG PO (09:20)
[2024-03-11] MEDS: OCUVITE SOFTGEL 1 CAP PO (09:20)
[2024-03-11] MEDS: ELIQUIS 5 MG PO (09:20)
[2024-03-11] MEDS: THERAGRAN 1 TABLET PO (09:20)
[2024-03-11] MEDS: VASOTEC 20 MG PO (09:20)
[2024-03-11] MEDS: VITAMIN C 500 MG PO (09:20)
[2024-03-11] MEDS: NORVASC 10 MG PO (09:21)
[2024-03-11] MEDS: TOPROL XL 100 MG PO (09:21)
[2024-03-11] MEDS: ALDACTONE 25 MG PO (09:21)
[2024-03-11] MEDS: LASIX IV (09:30)
[2024-03-11 09:44] LABS: Hematocrit 39.4 % (39.0-52.0); Hemoglobin 13.6 g/dL (13.0-18.0); Mean Corp Hgb Conc. 34.5 g/dL (33.0-37.0); Mean Corpuscular Volume 92.7 fL (80.0-94.0); Mean Platelet Volume 9.5 fL (7.4-10.4); Platelet Count 273 10^3/uL (130-400); Red Blood Cell Count 4.25 10^6/uL (4.70-6.10); Red Cell Dist. Width 13.4 % (11.5-14.5); White Blood Cell Count 4.8 10^3/uL (4.8-10.8)
[2024-03-11 09:59] LABS: NT-proBNP 265 pg/ml
[2024-03-11 10:05] LABS: Blood Urea Nitrogen 26 mg/dl (9-20); Carbon Dioxide 29 mmol/L (22-30); Chloride 102 mmol/L (98-107); Estimated Creatinine Clearance 101 ml/min; Glucose 116 mg/dl (70-99); Potassium 4.2 mmol/L (3.5-5.1); Sodium 143 mmol/L (135-145); eGFR > 60.00
--- NOTE | 2024-03-11 10:53 | W.HF.CON ---
Heart Failure
- LV Function
Left ventricular function study result: LV Ejection fraction >40%
Ejection Fraction Percentage: 50-55
- ARNI
Patient already on ARNI: No
Heart Failure ARNI Not Indicated: LV Ejection Fraction >/= 40%
- ACEI/ARB
Patient already on ACEI/ARB: No
Heart Failure ACEI/ARB Not Indicated: LV Ejection Fraction > 40%
- Beta Laurent
Patient already on Evidence Based Beta Laurent: Yes
- Mineralocorticord Receptor Antagonist
Patient already on MRA: Yes
- SGLT-2 Inhibitor
Patient already on SGLT-2 Inhibitor: Yes
- Afib Anticoagulation
Patient already on Anticoagulation for Afib: Yes
- NYHA CHF Classification
NYHA CHF Classification Level: Class III - Symptoms w/ min exertion, interferes w/ nml daily activity (B/L pneumonia)
- ACC/AHA Stage
ACC/AHA Stage: Stage C: Symptomatic Heart Failure
[2024-03-11 11:18] VITALS: BP 138/71
--- NOTE | 2024-03-11 12:00 | CM ---
Reviewed the chart notes and spoke with the patient and his spouse at the bedside. IMM reviewed and placed on chart. The patient anticipates being discharged today after echo. The patient's spouse will provide transportation. CM continues to be
available to patient/family and is monitoring medical plan for needs at discharge.
Plan: Discharge to home when medically stable.
--- NOTE | 2024-03-11 12:15 | W.PN.HOSP.TC ---
Addendum entered and electronically signed by Rodriguez Vo MD 03/12/24 15:49:
[id number]
Original Note:
Today's Communication/Plan
-
transition to 20 mg Lasix Monday. Increase to daily if weight increase in 3-5 pounds.
BMP in 2 and 4 weeks after discharge and q 3months to follow Cr/K+/HCO3
F/u Cards, Pulm, PCP outpatient
ECHO Pending
Assessment / Plan
Assessment / Plan
Gen: NAD, AAOx3.
Eyes: EOMI, PERRLA, no scleral icterus.
Neck: supple.
CV: continues to remain RRR, +S1/S2, no m/r/g.
Resp: CTAB
Abd: +BS, soft, NT, ND
Skin: No rashes. No LE edema.
Neuro: remains CN 2-12 intact, non-focal.
Psych: Normal mood and affect.
Acute hypoxic respiratory failure due to acute on chronic HFpEF:
-with rales in the bases and proBNP 1830 pt was given 40mg IV Lasix on admission, followed by Lasix 40mg IV Q12H -> transition to 20 mg Lasix Monday. Increase to daily if weight increase in 3-5 pounds. BMP in 2 and 4 weeks after
discharge and q 3months to follow Cr/K+/HCO2
-Note, the pt was on abx for first 24 hours of admission. On admission the patient's imaging was read as multifocal pneumonia. In retrospect the findings on imaging likely represent acute pulmonary edema. Patient's procalcitonin was negative.
Antibiotics were stopped. Myself and infectious disease agree that there is no bacterial pneumonia at this time. 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 BCx NGTD. COVID/Flu
NEG. Legionella and strep urinary Ags NEG.
-cont BB/Aldactone
-DC KCL
-was on 6L NC O2, now weaned to RA and ambulating well
-ID/pulm/cards following - f/u cards, pulm outpatient
-IS, ambulate pt
-echo pending - and dc thereafter
Other problems:
Paroxysmal atrial fibrillation: h/o ablation in 2021. Continue Toprol-XL/Eliquis F/u [employer] outpatient
DM2: a1c 6.3%. SSI/accuchecks/diabetic diet. cont Farxiga.
Essential hypertension: Continue Norvasc/enalapril/Toprol-XL/aldactone
FULL/Eliquis
More than 30 minutes spent in discharge including
Final examination of the patient
Summarizing hospital stay
Instructions for continuing care to all relevant caregivers
Preparation of discharge records, prescriptions, and referral forms
Total time spent (35 in minutes):
Anticipated Discharge: Today
Subjective/Interval History
-
Date of Service: March 11, 2024
No acute events, remains off oxygen saturating well
Objective Data
-
Labs:
Laboratory Results
03/11/24
08:01
WBC 4.8
Hgb 13.6
Hct 39.4
Plt Count 273 D
Sodium 143
Potassium 4.2
Chloride 102
Carbon Dioxide 29
BUN 26 H
Creatinine 0.6 L
Glucose 116 H
Calcium 9.0
Vital Signs:
Vital Signs
Temp Pulse Resp BP Pulse Ox
97.6 F 66 16 138/71 94
03/11/24 11:18 03/11/24 11:18 03/11/24 11:18 03/11/24 11:18 03/11/24 11:18
I&O
03/10/24 03/11/24 03/12/24
06:59 06:59 06:59
Intake Total 1979 1440 / 1440
Output Total 3125 / 3125 700 / 700
Balance -1145 / -1145 740 / 740
Review of Systems
-
History Source: Patient
All other systems: Not reviewed unless documented
Data Reviewed
-
Diagnostic Radiology: Image personally visualized and interpreted and Report Reviewed by me
CT Scan: Image personally visualized and interpreted and Report Reviewed by me
Labs: Labs Reviewed by me
--- NOTE | 2024-03-11 12:21 | W.DS.TRANS ---
DC Summary - Web Coordinator
-
Discharge Instructions:
Sleep Apnea Risk High
Discharge Diagnosis/Procedures Acute on chronic HFpEF
Fever, resolved
Diet Low Cholesterol,Low Fat,Restrict fluids to 48 oz
,Diabetic, Carb Controlled
Activity As tolerated
Blood Work Will need BMP 2 and 4 weeks from discharge and
every 3 months thereafter or otherwise advised
by your own early childhood special educator: to follow Cr/K+/HCO3
Instructions: *PCP/Other Icer Machine Operator Heart Failure Instructions
Stand-Alone Forms:
Changes to Home Medications: Yes
Discharge Medications:
DC Medications w/original date entered in [email or web address]
amlodipine 10 mg tablet 10 mg PO DAILY Blood Pressure 03/04/24
apixaban 5 mg tablet (Eliquis) 5 mg PO BID Blood Clot Prevention/Tx 03/04/24
ascorbic acid (vitamin C) 500 mg tablet (Vitamin C) 500 mg PO DAILY Supplement 03/04/24
atorvastatin 20 mg tablet 20 mg PO HS High Cholesterol 03/04/24
calcium carbonate 500 mg PO DAILY Supplement 03/04/24
dapagliflozin propanediol 10 mg tablet (Farxiga) 10 mg PO DAILY Diabetes 03/04/24
enalapril maleate 20 mg tablet 20 mg PO DAILY Blood Pressure 03/04/24
glucosamine sulfate 500 mg tablet (Glucosamine) 500 mg PO DAILY Supplement 03/04/24
metoprolol succinate 100 mg tablet,extended release 24 hr 100 mg PO DAILY Heart Failure 03/04/24
omega [id number]-jhu-[id number]-fish oil 1,000 mg (120 mg-180 mg) capsule (Fish Oil) 1 cap PO DAILY High Cholesterol 03/04/24
tamsulosin 0.4 mg capsule 0.4 mg PO HS Urinary Issue 03/04/24
therapeutic multivitamin 1 tab PO DAILY Supplement 03/04/24
turmeric 400 mg capsule 400 mg PO DAILY Supplement 03/04/24
vitamins A,C,D-thql-zldcbn 4,296 mcg-226 mg-90 mg capsule (PreserVision AREDS) 1 cap PO BID Supplement 03/04/24
furosemide 20 mg tablet 20 mg PO MOWEFR 30 days #30 tabs 03/11/24
spironolactone 25 mg tablet 25 mg PO DAILY 30 days #30 tabs 03/11/24
Home Medication Changes
furosemide 20 mg tablet 20 mg PO MOWEFR 30 days #30 tabs 03/11/24
spironolactone 25 mg tablet 25 mg PO DAILY 30 days #30 tabs 03/11/24
Pending Results: No
[2024-03-11 12:49] LABS: Glucose - Point of Care 89 mg/dl (70-99)
[2024-03-11] MEDS: LASIX 20 MG PO (14:00)
== END 2024-03-11 17:27 | disposition home or self-care (01) | DRG 291 ==
LOC: 2 NORTH 10:39
PROVIDERS: Internal Medicine Cardiovascular Disease; ADMITTING PHYSICIAN Internal Medicine; ATTENDING PHYSICIAN Internal Medicine; CONSULT PHYSICIAN Internal Medicine Cardiovascular Disease; CONSULT PHYSICIAN Internal Medicine Critical Care Medicine; CONSULT PHYSICIAN Internal Medicine Infectious Disease; EMERGENCY PHYSICIAN Student in an Organized Health Care Education/Training Program
DX: I11.0 Hypertensive heart disease with heart failure (principal); I50.33 Acute on chronic diastolic (congestive) heart failure; J18.9 Pneumonia, unspecified organism; J96.01 Acute respiratory failure with hypoxia; Z11.52 Encounter for screening for COVID-19; I48.0 Paroxysmal atrial fibrillation; Z79.01 Long term (current) use of anticoagulants; E11.9 Type 2 diabetes mellitus without complications; I70.0 Atherosclerosis of aorta
CPT/HCPCS: 71046; 71260; 80048; 80053; 81003; 81015; 82962; 83605; 83735; 83880; 84145; 84484; 85025; 85027; 87040; 87449; 87502; 87641; 87811; 87899; 93005; 93306; 94660; 96365; 96375; 97162; 99285; Q9967